=== PATIENT | female | born 1990 | race American Indian/Alaskan Native ===

== ENCOUNTER 2016-11-27 00:49 | Emergency (ER) | payer MEDICAID ==
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
[2016-11-27 05:01] VITALS: BP 146/78
== END 2016-11-27 05:02 | disposition home or self-care (01) ==
LOC: ED 00:49
DX: T21.51XA Corrosion of first degree of chest wall, initial encounter (principal); T24.512A Corrosion of first degree of left thigh, initial encounter; T24.511A Corrosion of first degree of right thigh, initial encounter; X08.8XXA Exposure to other specified smoke, fire and flames, initial encounter; Y93.9 Activity, unspecified; Y99.9 Unspecified external cause status; Y92.89 Other specified places as the place of occurrence of the external cause

== ENCOUNTER 2019-02-07 13:42 | Inpatient (IN) | payer MEDICAID ==
[2019-02-07] MEDS ORDERED: BENADRYL PO PRN (14:21)
[2019-02-07] MEDS ORDERED: TYLENOL PO PRN (14:21)
--- NOTE | 2019-02-07 14:29 | History and Physical Report ---
History of Present Illness Chief complaint: transferred from clinic for preeclampsia evaluation History of present illness: 29yo at 25 5/7wks transferred from clinic for concern for elevated blood pressures with history of preeclampsia. She has a history of preeclampsia at 24 and 30 weeks with subsequent delivery via section x 2. Her BPs in clinic were 150/100s, with no symptoms of headaches, blurry vision or RUQ pain. Her baseline 24hr urine protein is 467mg in December and 625mg one week ago. Her 1hr OGTT was 230, therefore a newly diagnosed gestational diabetic. She is comanaged with [facility] and was diagnosed with growth restriction at 20 weeks in the 2%. She is a patient of [facility] at [place]. 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) Past Surgical History: section (x 2 at 24 and 30wks) Social history: smoking (stopped when learned of ; smoking x 4 years, 4 cigs/day), other (lives with son) - Obstetrical History : 4 Number of Pregnancies: 2 Number of Living Children: 1 Medications and Allergies Allergies Allergy/AdvReac Type Severity Reaction Status Date / Time Penicillins AdvReac Severe Swelling Verified 01/29/19 15:09 Home Medications Medication Instructions Recorded Confirmed Last Taken Type Cyclobenzaprine [Flexeril] 10 mg PO TID PRN #30 tablet 06/09/13 Unknown Rx Hydrocodone Bit/Acetaminophen 1 each PO Q6HR #20 tablet 06/09/13 Unknown Rx [Lortab 5-500 Tablet] Ibuprofen [Motrin] 600 mg PO Q8H PRN #60 tablet 06/09/13 Unknown Rx Hydrocortisone 1% [Hydrocortisone 1 applicatio TP TID #1 tube 11/27/16 Unknown Rx 1% CREAM] Silver Sulfadiazine [Thermazene] 50 gm TP BID #1 cream..g. 11/27/16 Unknown Rx Active Meds: Active Medications Acetaminophen (Tylenol) 650 mg PO Q4H PRN PRN Reason: Pain MILD(1-3)/Fever >100.5/ELIAS Diphenhydramine HCl (Benadryl) 25 mg PO Q6H PRN PRN Reason: Itching Docusate Sodium (Colace) 100 mg PO Q12H PRN PRN Reason: Constipation Multivitamins/Iron/Calcium ( Vitamin) 1 each PO QDAY MAXINE - Vital Signs Vital signs: Vital Signs Pulse BP 89 139/86 02/07/19 14:01 02/07/19 14:01 Temp Pulse Resp BP Pulse Ox 83 132/81 02/07/19 14:16 02/07/19 14:16 Results All other labs normal. Assessment and Plan - Patient Problems (1) 25 weeks gestation of Current Visit: Yes Status: Acute Plan to address problem: Consider steroids after evaluation of blood glucose and IUGR Currently BPs controlled, mild elevation Obtain records from clinic for baseline BPs, labs (2) Gestational diabetes mellitus (GDM) Current Visit: Yes Status: Acute Plan to address problem: Record fasting, 2hr postprandial blood glucose (3) Chronic hypertension affecting Current Visit: Yes Status: Acute Plan to address problem: PIH labs 24hr urine protein Continue Labetolol 100mg PO BID (4) Proteinuria affecting Current Visit: Yes Status: Acute (5) Intrauterine growth restriction (IUGR) affecting care of mother Current Visit: Yes Status: Acute Plan to address problem: History of - Order estimated weight, UA dopplers Hold betamethasone until recommendation from [facility] due to association with IUGR and elevated blood glucose
[2019-02-07 16:43] LABS: Hemoglobin 11.3 gm/dl (10.1-14.3); Mean Corpuscular HGB Conc 34 % (30-34); Mean Corpuscular Volume 99 fl (79-97); Platelet Count 244 K/mm3 (140-440); Red Blood Count 3.33 M/mm3 (3.65-5.03); Red Cell Distribution Width 14.3 % (13.2-15.2)
[2019-02-07 17:01] LABS: Alanine Aminotransferase 32 units/L (7-56); Albumin 3.5 g/dL (3.9-5); BUN/Creatinine Ratio 20; Blood Urea Nitrogen 12 mg/dL (7-17); Calcium 9.3 mg/dL (8.4-10.2); Hemolysis Index 32; Uric Acid 5.5 mg/dL (3.5-7.6)
--- NOTE | 2019-02-07 17:56 | Event Note ---
Spoke with Dr. Ferreira, GRICEL Plan update? TORCH labs ordered steroids order to begin after blood glucose collection tomorrow. TSH ordered. NICU consult ordered.
--- NOTE | 2019-02-07 18:39 | Consultation ---
History of Present Illness Consult date: 02/07/19 Requesting physician: ALLY ARELLANO History of present illness: 29 y/o ROSA 05/18/19 now 25 5/7 weeks sent in from OB's office with stephanie vargas BP's sys in 180's per OB Denies ELIAS's Scotoma or RUQ Pain History of Severe Preeclampsia X 2 with prior pregnancies at 24 and 30 weeks Received IV Hydralazine and is on PO Labetalol 100 BID (on for 3 days) ------ New Diag of GDM 1 Hour GTT at 230 per OB ------ BP now 140-160/80's and 142/86 and 161/97 [facility] US also Severe IUGR 01/29/19 [facility] US EFW at 573 grams 6% with AC at 2% 02/07/19 [facility] US EFW still at 573 grams 0% and Cord Dopplers 3.4 to 4.6 Had 24 Hour Urine Prot 469 on 11/01/18 Labs H/H at 33 Plts at 244 AST/ALT at 25/32 Creat at .6 ob [id number] C/S 24 wks severe preeclampsia 15oz passed after 2 months 2006 Repeat C/S Severe preeclampsia at 30 weeks 4# also GDM Preg 3 VIP \\ 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) Past Surgical History: section (x 2 at 24 and 30wks) - Obstetrical History : 4 Medications and Allergies Allergies Allergy/AdvReac Type Severity Reaction Status Date / Time Penicillins AdvReac Severe Swelling Verified 01/29/19 15:09 Home Medications Medication Instructions Recorded Confirmed Last Taken Type Cyclobenzaprine [Flexeril] 10 mg PO TID PRN #30 tablet 06/09/13 Unknown Rx Hydrocodone Bit/Acetaminophen 1 each PO Q6HR #20 tablet 06/09/13 Unknown Rx [Lortab 5-500 Tablet] Ibuprofen [Motrin] 600 mg PO Q8H PRN #60 tablet 06/09/13 Unknown Rx Hydrocortisone 1% [Hydrocortisone 1 applicatio TP TID #1 tube 11/27/16 Unknown Rx 1% CREAM] Silver Sulfadiazine [Thermazene] 50 gm TP BID #1 cream..g. 11/27/16 Unknown Rx Active Meds: Active Medications Acetaminophen (Tylenol) 650 mg PO Q4H PRN PRN Reason: Pain MILD(1-3)/Fever >100.5/ELIAS Betamethasone Acet/Betameth SodPhos (Celestone Soluspan) 12 mg IM Q24H MAXINE Stop: 02/09/19 22:01 Diphenhydramine HCl (Benadryl) 25 mg PO Q6H PRN PRN Reason: Itching Docusate Sodium (Colace) 100 mg PO Q12H PRN PRN Reason: Constipation Labetalol HCl (Normodyne) 100 mg PO BID MAXINE Multivitamins/Iron/Calcium ( Vitamin) 1 each PO QDAY MAXINE - Vital Signs Vital signs: Vital Signs Pulse BP 89 139/86 02/07/19 14:01 02/07/19 14:01 Temp Pulse Resp BP Pulse Ox 99 F 88 18 161/97 02/07/19 14:47 02/07/19 18:03 02/07/19 14:47 02/07/19 18:03 Results Result Diagrams: 02/07/19 15:00 02/07/19 15:00 Abnormal lab results 02/07/19 02/07/19 Range/Units 15:00 15:00 WBC 11.7 H (4.5-11.0) K/mm3 RBC 3.33 L (3.65-5.03) M/mm3 MCV 99 H (79-97) fl MCH 34 H (28-32) pg Sodium 136 L (137-145) mmol/L Creatinine 0.6 L (0.7-1.2) mg/dL Lactate Dehydrogenase 273 H (91-180) units/L Total Protein 6.1 L (6.3-8.2) g/dL Albumin 3.5 L (3.9-5) g/dL All other labs normal. Assessment and Plan Impression: 1. Ramirez IUP at 25 5/7 weeks 2. Preeclampsia R/O Severe 3. H/O Preeclampsia with Past 2 Preg at 24 and 30 weeks 4. Prior C/S X 2 5. Severe IUGR with No growth over past 10 days EFW at 0% ( 02/07/19 at 573 grams - mean would be 873 grams) 6. GDM 7. Proteinuria Diag 11/01/18 at 469 Recommendations: 1. Steroids for FLM 2. Mg for neuroprophylaxis and Preeclampsia 3. All PIH Labs and repeat 24 Hour urine and spot UA 4. IV hydralazine for BP's sys > 160 or gage > 110 5. Labetalol 100 PO BID 6. 1999 ADA diet 7. Seq Leg compressors 8. Will ask US to obtain BPP if possible - Dopplers borderline elevated 9. BPP and cord dopplers twice per week 10. NICU consult 11. Accuchecks fastings and 2 Hour PP's 12. IF BS's high would start Insulin Split dose 30NPH/14Novolog in am 10Novolog at dinner and 10 NPH at bedtime 13. Delivery indicated for nonreassuing A-P testing - Reversal EDF or S/S of severe Preeclampsia - very high risk explained no growth over 10 days is very concerning. Steroids to be given and she is aware that delivery (by C/S) may be indicated 14. PIH Labs twice per week
[2019-02-07 19:19] LABS: Bacteria,Urine 2+ /HPF (Negative); Bilirubin,Urine NEG (Negative); Blood,Urine NEG (Negative); Color,Urine Amber (Yellow); Mucus,Urine 1+ /HPF; Urobilinogen,Urine < 2.0 mg/dL (<2.0)
[2019-02-07] MEDS: NORMODYNE PO SCH (22:13)
--- NOTE | 2019-02-08 05:41 | Ultrasound Report ---
PROCEDURE: US OB FOLLOW UP TECHNIQUE: Real-time limited sonographic examination was performed for evaluation of growth fo r each fetus with image documentation (1 or more fetuses). HISTORY: growth scan COMPARISONS: None . FINDINGS: MATERNAL Uterus: Within normal limits . Internal Os: closed . FETUS IUP: Single living intrauterine . Position: Breech . Amniotic fluid volume: Normal with a four-quadrant measurement of 11.4 cm Heart rate and rhythm: 129 BPM, Regular . anatomic survey: Not performed for this study . MEASUREMENTS BPD: 6 cm . HC: 21.8 cm . AC: 16.9 cm . FL: 4.4 cm . Mean Gestational Age (composite criteria): 23 weeks 5 days . Ratio biometry: Normal . Estimated Weight: 573 grams Interval growth: Appropriate . Estimated Due Date (earliest scan): 06/01/2019 . IMPRESSION: 1. Single living intrauterine gestation at approximately 23 weeks 5 days . 2. EDC by US 06/01/2019 . This document is electronically signed by Johanna Sheehan DO., Feb 08 2019 05:39:15 AM ET
--- NOTE | 2019-02-08 05:44 | Ultrasound Report ---
PROCEDURE: US OB VELOCIMETRY UMBILCAL ART TECHNIQUE: Ultrasound Doppler of the umbilical artery HISTORY: growth restriction COMPARISONS: No prior study FINDINGS: Doppler ultrasound evaluation of the umbilical artery reveals an S/D ratio average of 4.2. The distal index RI average is 2.3. The waveforms are normal. IMPRESSION: Normal evaluation of the umbilical artery. This document is electronically signed by Johanna Sheehan DO., Feb 08 2019 05:42:07 AM ET
[2019-02-08] MEDS ORDERED: LACTATED RINGERS 1,000 ML ONE (08:23)
[2019-02-08] MEDS: NORMODYNE PO SCH ×2 (10:25→21:18)
[2019-02-08] MEDS: PRENATAL VITAMIN PO SCH (10:26)
--- NOTE | 2019-02-08 14:08 | Consultation ---
History of Present Illness Consult date: 02/08/19 Requesting physician: CHRISTIN ACOSTA History of present illness: 29 y/o ROSA 05/18/19 now 25 6/7 weeks sent in from OB's office with elevated BP's sys in 180's per OB Denies ELIAS's Scotoma or RUQ Pain History of Severe Preeclampsia X 2 with prior pregnancies at 24 and 30 weeks ------ New Diag of GDM 1 Hour GTT at 230 per OB ------ BP now stable today on meds [facility] US also Severe IUGR 01/29/19 [facility] US EFW at 573 grams 6% with AC at 2% 02/07/19 [facility] US EFW still at 573 grams 0% and Cord Dopplers normal Had 24 Hour Urine Prot 469 on 11/01/18 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) Past Surgical History: section (x 2 at 24 and 30wks) - Obstetrical History : 4 Medications and Allergies Allergies Allergy/AdvReac Type Severity Reaction Status Date / Time Penicillins AdvReac Severe Swelling Verified 01/29/19 15:09 Home Medications Medication Instructions Recorded Confirmed Last Taken Type Cyclobenzaprine [Flexeril] 10 mg PO TID PRN #30 tablet 06/09/13 Unknown Rx Hydrocodone Bit/Acetaminophen 1 each PO Q6HR #20 tablet 06/09/13 Unknown Rx [Lortab 5-500 Tablet] Ibuprofen [Motrin] 600 mg PO Q8H PRN #60 tablet 06/09/13 Unknown Rx Hydrocortisone 1% [Hydrocortisone 1 applicatio TP TID #1 tube 11/27/16 Unknown Rx 1% CREAM] Silver Sulfadiazine [Thermazene] 50 gm TP BID #1 cream..g. 11/27/16 Unknown Rx Active Meds: Active Medications Acetaminophen (Tylenol) 650 mg PO Q4H PRN PRN Reason: Pain MILD(1-3)/Fever >100.5/ELIAS Last Admin: 02/08/19 08:45 Dose: 650 mg Documented by: Betamethasone Acet/Betameth SodPhos (Celestone Soluspan) 12 mg IM Q24H [facility] Stop: 02/09/19 22:01 Diphenhydramine HCl (Benadryl) 25 mg PO Q6H PRN PRN Reason: Itching Docusate Sodium (Colace) 100 mg PO Q12H PRN PRN Reason: Constipation Labetalol HCl (Normodyne) 100 mg PO BID [facility] Last Admin: 02/08/19 10:25 Dose: 100 mg Documented by: Multivitamins/Iron/Calcium ( Vitamin) 1 each PO QDAY [facility] Last Admin: 02/08/19 10:26 Dose: 1 each Documented by: Review of Systems Constitutional: no fever, no chills, no sweats Eyes: no blurred vision, no diplopia Ears, nose, mouth and throat: deferred Cardiovascular: no orthopnea, no palpitations, no rapid/irregular heart beat Respiratory: no cough, no cough with sputum, no shortness of breath Gastrointestinal: no abdominal pain Musculoskeletal: no neck stiffness - Vital Signs Vital signs: Vital Signs Pulse BP 89 139/86 02/07/19 14:01 02/07/19 14:01 Temp Pulse Resp BP Pulse Ox 98.7 F 83 18 127/74 02/08/19 08:25 02/08/19 13:22 02/08/19 08:25 02/08/19 13:22 - Physical Exam Cardiovascular: Regular rate Lungs: Positive: Normal air movement Abdomen: Positive: normal appearance, soft. Negative: distention, tenderness Uterus: Negative: tender (Not on monitor when seeing patient) Results Result Diagrams: 02/07/19 15:00 02/07/19 15:00 Abnormal lab results 02/07/19 02/07/19 02/07/19 Range/Units 15:00 15:00 21:03 WBC 11.7 H (4.5-11.0) K/mm3 RBC 3.33 L (3.65-5.03) M/mm3 MCV 99 H (79-97) fl MCH 34 H (28-32) pg Sodium 136 L (137-145) mmol/L Creatinine 0.6 L (0.7-1.2) mg/dL POC Glucose 116 H (70-105) Lactate Dehydrogenase 273 H (91-180) units/L Total Protein 6.1 L (6.3-8.2) g/dL Albumin 3.5 L (3.9-5) g/dL 02/08/19 02/08/19 Range/Units 10:40 13:51 WBC (4.5-11.0) K/mm3 RBC (3.65-5.03) M/mm3 MCV (79-97) fl MCH (28-32) pg Sodium (137-145) mmol/L Creatinine (0.7-1.2) mg/dL POC Glucose 107 H 112 H (70-105) Lactate Dehydrogenase (91-180) units/L Total Protein (6.3-8.2) g/dL Albumin (3.9-5) g/dL All other labs normal. Assessment and Plan 29 y/o ROSA 05/18/19 now 25 6/7 weeks with CHTN not controlled, IUGR, history of PreE, GDM no meds - the patient is stable now on Labetalol 100 BID - 24 hour urine is pending at this time past one was 460 - labs are stable - the patient has no sxs now - the patient should have repeat labs today - her BP have been stable since she has been admitted - new Dx of GDM with stable BS, continue BS checks - likely that the patient can be DC if all her BS and BP are stable - she will need to perform BP and BS at home - I spoke with Dr Acosta about the patient -please call myself with any further concerns [phone]
--- NOTE | 2019-02-08 14:22 | Progress Note ---
Assessment and Plan - Patient Problems (1) 25 weeks gestation of Current Visit: Yes Status: Acute (2) Chronic hypertension affecting Current Visit: Yes Status: Acute Plan to address problem: Toxemia labs ordered. Continue labetolol. Continous monitoring. (3) Intrauterine growth restriction (IUGR) affecting care of mother Current Visit: Yes Status: Acute Plan to address problem: [facility] consult done. BPP and Cord doppler tomorrow. (4) Gestational diabetes mellitus (GDM) Current Visit: Yes Status: Acute Plan to address problem: Continue fasting, 2-hr PP glucose. Subjective - Subjective Date of service: 02/08/19 Principal diagnosis: SIUP at 25 weeks and 6 days gestation with CHTN, IUGR. Interval history: Patient is a 29 year old at 25 6/7 weeks who was admitted yesterday for elevated blood pressures. Her BPs in clinic were 150/100s. She denied any headache, visual changes or RUQ pain. She reported good movement. She was started on labetolol BID. Since her admission, her BPs have been stable in the 130's-80-90's. She has a history of preeclampsia at 24 and 30 weeks with subsequent delivery via section x 2. Her 24-hr urine protein in 12/2018 was 467mg and 625mg one week ago. She is a gestational diabetic (GDMA1). She is co-managed with [facility] for CHTN and IUGR. BPP 8/8. Cord doppler was normal. Objective - Vital Signs Vital Signs: Vital Signs - 12hr 02/08/19 02/08/19 02/08/19 02:58 03:58 04:59 Temperature Pulse Rate 87 81 74 Respiratory Rate Blood Pressure 133/72 131/74 152/88 02/08/19 02/08/19 02/08/19 05:58 06:58 07:58 Temperature Pulse Rate 77 73 79 Respiratory Rate Blood Pressure 142/84 135/75 131/75 02/08/19 02/08/19 02/08/19 08:25 08:58 09:58 Temperature 98.7 F Pulse Rate 80 75 Respiratory 18 Rate Blood Pressure 139/86 140/84 02/08/19 02/08/19 02/08/19 10:25 10:58 11:58 Temperature Pulse Rate 75 85 90 Respiratory Rate Blood Pressure 143/97 144/90 141/82 02/08/19 02/08/19 12:58 13:22 Temperature Pulse Rate 83 83 Respiratory Rate Blood Pressure 135/82 127/74 - Exam Cardiovascular: Normal S1, Normal S2 Lungs: Clear to auscultation Vulva: both: normal FHR: category 1 Uterine Contraction Monitor Mode: External Uterine Contraction Pattern: Absent Deep Tendon Reflex Grade: Normal +2 - Labs Labs: Abnormal Labs 02/07/19 02/07/19 02/07/19 15:00 15:00 21:03 WBC 11.7 H RBC 3.33 L MCV 99 H MCH 34 H Sodium 136 L Creatinine 0.6 L POC Glucose 116 H Lactate Dehydrogenase 273 H Total Protein 6.1 L Albumin 3.5 L 02/08/19 02/08/19 10:40 13:51 WBC RBC MCV MCH Sodium Creatinine POC Glucose 107 H 112 H Lactate Dehydrogenase Total Protein Albumin Laboratory Results - last 24 hr 02/07/19 02/07/19 02/07/19 15:00 15:00 15:00 WBC 11.7 H RBC 3.33 L Hgb 11.3 Hct 33.0 MCV 99 H MCH 34 H MCHC 34 RDW 14.3 Plt Count 244 Sodium 136 L Potassium 4.5 Chloride 101.0 Carbon Dioxide 22 Anion Gap 18 BUN 12 Creatinine 0.6 L Estimated GFR > 60 BUN/Creatinine Ratio 20 Glucose 73 POC Glucose Fasting Glucose Hemoglobin A1c 5.5 Uric Acid 5.5 Calcium 9.3 Total Bilirubin 0.20 AST 25 ALT 32 Alkaline Phosphatase 101 Lactate Dehydrogenase 273 H Total Protein 6.1 L Albumin 3.5 L Albumin/Globulin Ratio 1.3 TSH Urine Color Urine Turbidity Urine pH Ur Specific [place] Urine Protein Urine Glucose (UA) Urine Ketones Urine Blood Urine Nitrite Urine Bilirubin Urine Urobilinogen Ur Leukocyte Esterase Urine WBC (Auto) Urine RBC (Auto) U Epithel Cells (Auto) Urine Bacteria (Auto) Urine Mucus RPR 02/07/19 02/07/19 02/07/19 17:00 18:35 18:35 WBC RBC Hgb Hct MCV MCH MCHC RDW Plt Count Sodium Potassium Chloride Carbon Dioxide Anion Gap BUN Creatinine Estimated GFR BUN/Creatinine Ratio Glucose POC Glucose Fasting Glucose Hemoglobin A1c Uric Acid Calcium Total Bilirubin AST ALT Alkaline Phosphatase Lactate Dehydrogenase Total Protein Albumin Albumin/Globulin Ratio TSH 1.490 Urine Color [place] Urine Turbidity Turbid Urine pH 5.0 Ur Specific [place] 1.029 Urine Protein 30 mg/dl Urine Glucose (UA) Neg Urine Ketones Tr Urine Blood Neg Urine Nitrite Neg Urine Bilirubin Neg Urine Urobilinogen < 2.0 Ur Leukocyte Esterase Neg Urine WBC (Auto) 2.0 Urine RBC (Auto) 5.0 U Epithel Cells (Auto) 1.0 Urine Bacteria (Auto) 2+ Urine Mucus 1+ RPR Nonreactive 02/07/19 02/08/19 02/08/19 21:03 05:07 05:42 WBC RBC Hgb Hct MCV MCH MCHC RDW Plt Count Sodium Potassium Chloride Carbon Dioxide Anion Gap BUN Creatinine Estimated GFR BUN/Creatinine Ratio Glucose POC Glucose 116 H 80 Fasting Glucose 91 Hemoglobin A1c Uric Acid Calcium Total Bilirubin AST ALT Alkaline Phosphatase Lactate Dehydrogenase Total Protein Albumin Albumin/Globulin Ratio TSH Urine Color Urine Turbidity Urine pH Ur Specific [place] Urine Protein Urine Glucose (UA) Urine Ketones Urine Blood Urine Nitrite Urine Bilirubin Urine Urobilinogen Ur Leukocyte Esterase Urine WBC (Auto) Urine RBC (Auto) U Epithel Cells (Auto) Urine Bacteria (Auto) Urine Mucus RPR 02/08/19 02/08/19 10:40 13:51 WBC RBC Hgb Hct MCV MCH MCHC RDW Plt Count Sodium Potassium Chloride Carbon Dioxide Anion Gap BUN Creatinine Estimated GFR BUN/Creatinine Ratio Glucose POC Glucose 107 H 112 H Fasting Glucose Hemoglobin A1c Uric Acid Calcium Total Bilirubin AST ALT Alkaline Phosphatase Lactate Dehydrogenase Total Protein Albumin Albumin/Globulin Ratio TSH Urine Color Urine Turbidity Urine pH Ur Specific [place] Urine Protein Urine Glucose (UA) Urine Ketones Urine Blood Urine Nitrite Urine Bilirubin Urine Urobilinogen Ur Leukocyte Esterase Urine WBC (Auto) Urine RBC (Auto) U Epithel Cells (Auto) Urine Bacteria (Auto) Urine Mucus RPR - Results US- obstetric: report reviewed
[2019-02-08 15:10] LABS: Hematocrit 34.3 % (30.3-42.9); Hemoglobin 11.7 gm/dl (10.1-14.3); Mean Corpuscular HGB Conc 34 % (30-34); Mean Corpuscular Volume 102 fl (79-97); Platelet Count 234 K/mm3 (140-440); Red Blood Count 3.38 M/mm3 (3.65-5.03); Red Cell Distribution Width 14.6 % (13.2-15.2)
[2019-02-08 15:52] LABS: Alanine Aminotransferase 34 units/L (7-56); Uric Acid 5.6 mg/dL (3.5-7.6)
[2019-02-08] MEDS: LACTATED RINGERS 1,000 ML IV SCH (19:35)
[2019-02-08] MEDS: CELESTONE SOLUSPAN IM SCH (21:18)
[2019-02-09] MEDS: LACTATED RINGERS 1,000 ML IV SCH ×2 (09:36→21:11)
[2019-02-09] MEDS: NORMODYNE PO SCH ×2 (10:06→22:55)
--- NOTE | 2019-02-09 10:24 | Progress Note ---
Assessment and Plan - Patient Problems (1) 26 weeks gestation of Current Visit: Yes Status: Acute (2) Chronic hypertension affecting Current Visit: Yes Status: Acute Plan to address problem: Toxemia labs were normal. Continue labetolol and BP monitoring. monitoring. [facility] consult done. (3) IUGR (intrauterine growth restriction) Current Visit: Yes Status: Acute Plan to address problem: Sonogram (02/09)showed EFW: 604 gms, BPP 8/8, JESENIA 14.4, cord doppler normal. [facility] consult done. Recommended continue inpatient management. Repeat BPP and cord doppler in 2-3 days. (4) Gestational diabetes Current Visit: Yes Status: Acute Plan to address problem: FS fasting and 2-hr PP. ADA diet. (5) Previous delivery affecting Current Visit: Yes Status: Acute (6) Obesity Current Visit: Yes Status: Acute Subjective - Subjective Date of service: 02/09/19 Principal diagnosis: SIUP at 26 weeks with elevated BP and IUGR. Interval history: Patient is a 29 year old at 26 weeks gestation who was admitted 2 days ago for elevated blood pressure. Her BPs in clinic were 150/100s. She denied any headache, visual changes or RUQ pain. She reported good movement. She was started on labetolol BID. Since her admission, her BPs have been stable in the 100-160/60-90's. She has a history of preeclampsia at 24 and 30 weeks with subsequent delivery via section x 2. Her 24-hr urine protein in 12/2018 was 467mg and 625mg one week ago. She is a gestational diabetic (GDMA1). She is co-managed with [facility] for CHTN and IUGR. BPP 8/8. Cord doppler was normal 02/07. Objective - Vital Signs Vital Signs: Vital Signs - 12hr 02/08/19 02/08/19 02/09/19 22:22 23:22 00:23 Temperature Pulse Rate 85 86 83 Blood Pressure 134/77 140/79 134/60 02/09/19 02/09/19 02/09/19 01:23 02:24 03:22 Temperature Pulse Rate 80 93 H 83 Blood Pressure 115/55 105/62 134/63 02/09/19 02/09/19 02/09/19 07:40 07:43 10:05 Temperature 98.6 F Pulse Rate 86 90 Blood Pressure 165/90 134/78 02/09/19 10:06 Temperature Pulse Rate Blood Pressure 134/78 - Exam Cardiovascular: Normal S1, Normal S2 Lungs: Clear to auscultation Vulva: both: normal FHR: category 1 Uterine Contraction Monitor Mode: External Uterine Contraction Pattern: Absent Deep Tendon Reflex Grade: Normal +2 - Labs Labs: Abnormal Labs 02/07/19 02/07/19 02/07/19 15:00 15:00 21:03 WBC 11.7 H RBC 3.33 L MCV 99 H MCH 34 H Sodium 136 L Creatinine 0.6 L POC Glucose 116 H Lactate Dehydrogenase 273 H Total Protein 6.1 L Albumin 3.5 L Ur Total Protein 24 Hr Urine Total Protein 02/08/19 02/08/19 02/08/19 10:40 13:51 14:46 WBC 11.4 H RBC 3.38 L MCV 102 H MCH 35 H Sodium Creatinine POC Glucose 107 H 112 H Lactate Dehydrogenase Total Protein Albumin Ur Total Protein 24 Hr Urine Total Protein 02/08/19 02/08/19 02/08/19 14:46 19:23 20:01 WBC RBC MCV MCH Sodium Creatinine POC Glucose 112 H Lactate Dehydrogenase 218 H Total Protein Albumin Ur Total Protein 24 Hr 286.00 H Urine Total Protein 13 H 02/09/19 06:16 WBC RBC MCV MCH Sodium Creatinine POC Glucose 147 H Lactate Dehydrogenase Total Protein Albumin Ur Total Protein 24 Hr Urine Total Protein Laboratory Results - last 24 hr 02/07/19 02/08/19 02/08/19 18:35 10:40 13:51 WBC RBC Hgb Hct MCV MCH MCHC RDW Plt Count Creatinine Estimated GFR POC Glucose 107 H 112 H Uric Acid AST ALT Lactate Dehydrogenase Urine Total Volume Ur Total Protein 24 Hr Urine Total Protein RPR Nonreactive 02/08/19 02/08/19 02/08/19 14:46 14:46 19:23 WBC 11.4 H RBC 3.38 L Hgb 11.7 Hct 34.3 MCV 102 H MCH 35 H MCHC 34 RDW 14.6 Plt Count 234 Creatinine 0.7 Estimated GFR > 60 POC Glucose Uric Acid 5.6 AST 24 ALT 34 Lactate Dehydrogenase 218 H Urine Total Volume 2200 Ur Total Protein 24 Hr 286.00 H Urine Total Protein 13 H RPR 02/08/19 02/09/19 20:01 06:16 WBC RBC Hgb Hct MCV MCH MCHC RDW Plt Count Creatinine Estimated GFR POC Glucose 112 H 147 H Uric Acid AST ALT Lactate Dehydrogenase Urine Total Volume Ur Total Protein 24 Hr Urine Total Protein RPR - Results US- obstetric: report reviewed
--- NOTE | 2019-02-09 11:10 | Ultrasound Report ---
PROCEDURE: US OB FOLLOW UP TECHNIQUE: Real-time transabdominal sonography of the uterus, placenta, amniotic fluid, adnexa, and fetus was performed with image documentation. Measurements were obtained to determine age/size. M-mode Doppler was used to document heartbeat. ADDITIONAL GESTATION: None HISTORY: Growth and JESENIA COMPARISONS: Obstetric ultrasound performed on 02/07/2019. FINDINGS: MATERNAL: Uterus and cervix: The cervix is closed measures 6.1 cm in length. Adnexa and ovaries: Not visualized. IUP: Single live intrauterine gestation. Position: Cephalic Placental position: Anterior, without previa . Amniotic fluid volume Normal. JESENIA is 14.4 cm. Cardiac activity: Regular rhythm at 143 bpm. BIOMETRY: Biparietal diameter: 5.9 cm, corresponding to a gestational age of 24 weeks, 0 days. Head circumference: 21.5 cm, corresponding to a gestational age of 23 weeks, 4 days. abdominal circumference: 18.62 cm, corresponding to a gestational age of 23 weeks, 3 days. Femur length: 4.19 cm, corresponding to a gestational age of 23 weeks, 4 days. Ratio biometry: Normal . Estimated Weight: 604 grams. Mean Gestational Age (composite criteria) based on today's measurements: 23 weeks, 5 days. Estimated Due Date: 06/03/2019. IMPRESSION: Single live intrauterine gestation at 23 weeks, 5 days. Estimated due date: 06/03/2019. No anatomic abnormality. Normal amniotic fluid index of 14.4 cm. This document is electronically signed by Prisca Camara MD., Feb 09 2019 11:09:05 AM ET
--- NOTE | 2019-02-09 11:11 | Ultrasound Report ---
PROCEDURE: US OB BPP WO NON-STRESS TECHNIQUE: Sonographic evaluation for breathing, movement, tone, and amniotic flui d volume was performed. HISTORY: well being COMPARISONS: None . FINDINGS: FETUS Amniotic fluid volume Normal-score 2. At least one vertical pocket >2 cm or more in vertical axis . breathing: Normal-score 2 . movement: Normal-score 2 . tone: Normal-score 2 . Score: 8 of 8 . IMPRESSION: Normal biophysical profile . This document is electronically signed by Prisca Camara MD., Feb 09 2019 11:09:49 AM ET
--- NOTE | 2019-02-09 11:13 | Ultrasound Report ---
PROCEDURE: US OB VELOCIMETRY UMBILCAL ART TECHNIQUE: Duplex Doppler ultrasound of the umbilical artery was performed HISTORY: well being COMPARISONS: Ultrasound of the umbilical artery performed on 02/08/2018 FINDINGS: There is a normal waveform of the umbilical artery with a systolic to diastolic ratio average of 3.48 and a normal resistive indices average of 0.71. heart rate is 143 bpm. IMPRESSION: Normal umbilical artery ultrasound. This document is electronically signed by Prisca Camara MD., Feb 09 2019 11:11:39 AM ET
--- NOTE | 2019-02-09 15:26 | Ultrasound Report ---
PROCEDURE: US OB VELOCIMETRY UMBILCAL ART TECHNIQUE: Duplex Doppler ultrasound of the umbilical artery was performed HISTORY: IUGR COMPARISONS: Ultrasound of the umbilical artery performed on 02/07/2019 FINDINGS: There is a normal waveform of the umbilical artery with a systolic to diastolic ratio average of 4.05 . Normal resistive index range of 0.75. heart rate is 142 bpm. IMPRESSION: Normal ultrasound of the umbilical artery. This document is electronically signed by Prisca Camara MD., Feb 09 2019 03:24:22 PM ET
[2019-02-09] MEDS: CELESTONE SOLUSPAN IM SCH (22:59)
[2019-02-10 09:29] LABS: Hematocrit 33.8 % (30.3-42.9); Hemoglobin 11.4 gm/dl (10.1-14.3); Mean Corpuscular HGB Conc 34 % (30-34); Mean Corpuscular Volume 101 fl (79-97); Red Blood Count 3.36 M/mm3 (3.65-5.03); Red Cell Distribution Width 14.6 % (13.2-15.2)
[2019-02-10 09:30] LABS: Platelet Count 250 K/mm3 (140-440)
[2019-02-10] MEDS: NORVASC PO SCH (09:46)
[2019-02-10] MEDS: NORMODYNE PO SCH ×2 (09:47→21:31)
[2019-02-10] MEDS: PRENATAL VITAMIN PO SCH (09:47)
[2019-02-10 09:49] LABS: Alanine Aminotransferase 31 units/L (7-56); Uric Acid 4.7 mg/dL (3.5-7.6)
--- NOTE | 2019-02-10 11:56 | Progress Note ---
Assessment and Plan - Patient Problems (1) 26 weeks gestation of Onset Date: 02/10/19 Current Visit: Yes Status: Acute Plan to address problem: A: IUP @ 26 1/7 weeks Chronic hypertension - uncontrolled P: Continue on Labetalol 300 BID and amlodipine 5mg QD - her BP have been increased and required continued med adjustment - labs are stable Continue present management (2) Chronic hypertension affecting Onset Date: 02/10/19 Current Visit: Yes Status: Acute Subjective - Subjective Date of service: 02/10/19 Principal diagnosis: SIUP at 26 weeks with elevated BP and IUGR. Interval history: Patient is a 29 year old at 26 weeks gestation who was admitted 3 days ago for elevated blood pressure. Her BPs in clinic were 150/100s. She denied any headache, visual changes or RUQ pain. She reported good movement. She was started on labetolol BID. Since her admission, her BPs have been stable in the 100-160/60-90's. She has a history of preeclampsia at 24 and 30 weeks with subsequent delivery via section x 2. Her 24-hr urine protein in 12/2018 was 467mg and 625mg one week ago. She is a gestational diabetic (GDMA1). She is co-managed with [facility] for CHTN and IUGR. BPP 8/. Cord doppler was normal on 02/07/19. Today she denies headaches or blurred vision. Patient reports: movement normal, no new complaints, no loss of fluid, no vaginal bleeding, no contractions Objective - Vital Signs Vital Signs: Vital Signs - 12hr 02/10/19 02/10/19 02/10/19 00:36 01:35 02:35 Pulse Rate 96 H 89 111 H Blood Pressure 134/79 135/70 136/82 02/10/19 02/10/19 02/10/19 03:35 04:35 05:35 Pulse Rate 94 H 93 H 83 Blood Pressure 146/70 137/76 145/78 02/10/19 02/10/19 02/10/19 06:35 07:35 07:52 Pulse Rate 85 79 77 Blood Pressure 132/71 169/94 152/80 02/10/19 02/10/19 02/10/19 08:36 09:35 10:35 Pulse Rate 83 96 H 95 H Blood Pressure 148/76 138/66 141/72 05/27/19 11:35 Pulse Rate 100 H Blood Pressure 138/66 - Exam Abdomen: Present: normal appearance FHR: category 1 Uterine Contraction Monitor Mode: External Uterine Contraction Pattern: Absent - Labs Labs: Abnormal Labs 02/07/19 02/07/19 02/07/19 15:00 15:00 21:03 WBC 11.7 H RBC 3.33 L MCV 99 H MCH 34 H Sodium 136 L Creatinine 0.6 L POC Glucose 116 H Lactate Dehydrogenase 273 H Total Protein 6.1 L Albumin 3.5 L Ur Total Protein 24 Hr Urine Total Protein 02/08/19 02/08/19 02/08/19 10:40 13:51 14:46 WBC 11.4 H RBC 3.38 L MCV 102 H MCH 35 H Sodium Creatinine POC Glucose 107 H 112 H Lactate Dehydrogenase Total Protein Albumin Ur Total Protein 24 Hr Urine Total Protein 02/08/19 02/08/19 02/08/19 14:46 19:23 20:01 WBC RBC MCV MCH Sodium Creatinine POC Glucose 112 H Lactate Dehydrogenase 218 H Total Protein Albumin Ur Total Protein 24 Hr 286.00 H Urine Total Protein 13 H 02/09/19 02/09/19 02/09/19 06:16 10:10 15:49 WBC RBC MCV MCH Sodium Creatinine POC Glucose 147 H 155 H 119 H Lactate Dehydrogenase Total Protein Albumin Ur Total Protein 24 Hr Urine Total Protein 02/10/19 02/10/19 08:42 08:42 WBC 21.6 H RBC 3.36 L MCV 101 H MCH 34 H Sodium Creatinine 0.6 L POC Glucose Lactate Dehydrogenase 229 H Total Protein Albumin Ur Total Protein 24 Hr Urine Total Protein Laboratory Results - last 24 hr 02/09/19 02/09/19 02/09/19 10:10 15:49 20:22 WBC RBC Hgb Hct MCV MCH MCHC RDW Plt Count Creatinine Estimated GFR POC Glucose 155 H 119 H 93 Uric Acid AST ALT Lactate Dehydrogenase 02/10/19 02/10/19 08:42 08:42 WBC 21.6 H RBC 3.36 L Hgb 11.4 Hct 33.8 MCV 101 H MCH 34 H MCHC 34 RDW 14.6 Plt Count 250 Creatinine 0.6 L Estimated GFR > 60 POC Glucose Uric Acid 4.7 AST 17 ALT 31 Lactate Dehydrogenase 229 H
--- NOTE | 2019-02-10 13:14 | Progress Note ---
Assessment and Plan 29 y/o ROSA 05/18/19 now 26 1/7 weeks with CHTN not controlled, IUGR, history of PreE, GDM no meds - the patient is stable now on Labetalol 300 BID and amlodipine 5 - her BP have been increased and required continued med adjustment - labs are stable - the patient has no sxs now - the patient should have repeat labs q 2x weekly or with sxs - new Dx of GDM with stable BS, continue BS checks - likely that the patient can be DC if all her BS and BP are stable - she will need to perform BP and BS at home -please call myself with any further concerns [phone] - at this time the patient should stay in house Subjective - Subjective Date of service: 02/10/19 Principal diagnosis: SIUP at 26 weeks with elevated BP and IUGR. Patient reports: no new complaints, no loss of fluid, no vaginal bleeding Objective - Vital Signs Vital Signs: Vital Signs - 12hr 02/10/19 02/10/19 02/10/19 01:35 02:35 03:35 Pulse Rate 89 111 H 94 H Blood Pressure 135/70 136/82 146/70 02/10/19 02/10/19 02/10/19 04:35 05:35 06:35 Pulse Rate 93 H 83 85 Blood Pressure 137/76 145/78 132/71 02/10/19 02/10/19 02/10/19 07:35 07:52 08:36 Pulse Rate 79 77 83 Blood Pressure 169/94 152/80 148/76 02/10/19 02/10/19 02/10/19 09:35 10:35 11:35 Pulse Rate 96 H 95 H 100 H Blood Pressure 138/66 141/72 138/66 02/10/19 12:35 Pulse Rate 96 H Blood Pressure 135/82 - Exam Cardiovascular: Regular rate Abdomen: Present: soft. Absent: distention, tenderness, guarding Uterus: Absent: tenderness FHR: category 1 - Labs Labs: Abnormal Labs 02/07/19 02/07/19 02/07/19 15:00 15:00 21:03 WBC 11.7 H RBC 3.33 L MCV 99 H MCH 34 H Sodium 136 L Creatinine 0.6 L POC Glucose 116 H Lactate Dehydrogenase 273 H Total Protein 6.1 L Albumin 3.5 L Ur Total Protein 24 Hr Urine Total Protein 02/08/19 02/08/19 02/08/19 10:40 13:51 14:46 WBC 11.4 H RBC 3.38 L MCV 102 H MCH 35 H Sodium Creatinine POC Glucose 107 H 112 H Lactate Dehydrogenase Total Protein Albumin Ur Total Protein 24 Hr Urine Total Protein 02/08/19 02/08/19 02/08/19 14:46 19:23 20:01 WBC RBC MCV MCH Sodium Creatinine POC Glucose 112 H Lactate Dehydrogenase 218 H Total Protein Albumin Ur Total Protein 24 Hr 286.00 H Urine Total Protein 13 H 02/09/19 02/09/19 02/09/19 06:16 10:10 15:49 WBC RBC MCV MCH Sodium Creatinine POC Glucose 147 H 155 H 119 H Lactate Dehydrogenase Total Protein Albumin Ur Total Protein 24 Hr Urine Total Protein 02/10/19 02/10/19 08:42 08:42 WBC 21.6 H RBC 3.36 L MCV 101 H MCH 34 H Sodium Creatinine 0.6 L POC Glucose Lactate Dehydrogenase 229 H Total Protein Albumin Ur Total Protein 24 Hr Urine Total Protein Laboratory Results - last 24 hr 02/09/19 02/09/19 02/10/19 15:49 20:22 08:42 WBC 21.6 H RBC 3.36 L Hgb 11.4 Hct 33.8 MCV 101 H MCH 34 H MCHC 34 RDW 14.6 Plt Count 250 Creatinine Estimated GFR POC Glucose 119 H 93 Uric Acid AST ALT Lactate Dehydrogenase 02/10/19 08:42 WBC RBC Hgb Hct MCV MCH MCHC RDW Plt Count Creatinine 0.6 L Estimated GFR > 60 POC Glucose Uric Acid 4.7 AST 17 ALT 31 Lactate Dehydrogenase 229 H
[2019-02-10] MEDS: LACTATED RINGERS 1,000 ML IV SCH (16:11)
[2019-02-11] MEDS: ALUM-MAG HYDROX-SIMETH 200-200-20MG/5ML PO PRN (00:50)
[2019-02-11] MEDS ORDERED: ALUM-MAG HYDROX-SIMETH 200-200-20MG/5ML ONE (00:50)
[2019-02-11] MEDS: LACTATED RINGERS 1,000 ML IV SCH (00:51)
[2019-02-11] MEDS: PRENATAL VITAMIN PO SCH (10:07)
[2019-02-11] MEDS: NORMODYNE PO SCH ×2 (10:07→21:43)
[2019-02-11] MEDS: NORVASC PO SCH (10:09)
--- NOTE | 2019-02-11 14:01 | Consultation ---
History of Present Illness Consult date: 02/11/19 Requesting physician: ALLY ARELLANO Reason for consult: gestational hypertension History of present illness: Indication for Admission: IUP at 26 weeks 2 day gestation. Chronic hypertension; rule out superimposed preeclampsia. Gestational diabetes no current medications. Morbid obesity. Improved blood pressure Improved blood sugar values Intrauterine growth restriction history of preeclampsia. Maintain current Labetalol CURRENT PRESENTATION: Thank you for your recent consultation regarding the above named patient. As you are aware, this is a 29 year old para 0211 at 26 weeks 2 day (based on an RSOA of 05/18/19) who is currently admitted due to chronic hypertension with possible superimposed preeclampsia she was also noted to have elevated blood sugar values at present. At present she is without complaints. She denies vaginal bleeding, fluid leakage or abdominal pain. She specifically denies headache, dizziness or blurred vision. CURRENT MEDICATION: See notes in chart. Labetalol at 300 mg BID At present she DENIES to ongoing headache. PAST OBSTETRICAL HISTORY: See notes in patients chart. PREVIOUS MEDICAL HISTORY: . See notes in chart. PHYSICAL EXAM: o Recent BPs 138/82, 138/82 o No periorbital edema o Abdomen: Soft, obese, non-distended, fundal height c/w EGA o General: Patient admits to good movement. [facility] See previous note in chart. FHR Tracing: Category 1 Available Admission Labs: See report in chart. No evidence of HELLP syndrome 24 hour urine: 5641 mg in 24 hours. 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) Past Surgical History: section (x 2 at 24 and 30wks) - Obstetrical History : 4 Medications and Allergies Allergies Allergy/AdvReac Type Severity Reaction Status Date / Time Penicillins AdvReac Severe Swelling Verified 01/29/19 15:09 Home Medications Medication Instructions Recorded Confirmed Last Taken Type Aspirin [Aspirin BABY CHEW TAB] 81 mg PO QDAY 02/10/19 02/10/19 02/06/19 History Labetalol [Labetalol 100mg TAB] 100 mg PO BID 02/10/19 02/10/19 02/07/19 History Vit-Fe Fumar-FA [ 1 tab PO QDAY 02/10/19 02/10/19 02/07/19 History Vitamin] Active Meds: Active Medications Acetaminophen (Tylenol) 650 mg PO Q4H PRN PRN Reason: Pain MILD(1-3)/Fever >100.5/ELIAS Last Admin: 02/08/19 08:45 Dose: 650 mg Documented by: Al Hydrox/Mg Hydrox/Simethicone (Alum-Mag Hydrox-Simeth [id number]/5ml) 30 ml PO Q4H PRN PRN Reason: Indigestion Last Admin: 02/11/19 00:50 Dose: 30 ml Documented by: Amlodipine Besylate (Norvasc) 5 mg PO QDAY [facility] Last Admin: 02/11/19 10:09 Dose: 5 mg Documented by: Diphenhydramine HCl (Benadryl) 25 mg PO Q6H PRN PRN Reason: Itching Docusate Sodium (Colace) 100 mg PO Q12H PRN PRN Reason: Constipation Lactated Ringer's (Lactated Ringers) 1,000 mls @ 125 mls/hr IV DIRECT [facility] Last Admin: 02/11/19 00:51 Dose: 125 mls/hr Documented by: Labetalol HCl (Normodyne) 300 mg PO BID [facility] Last Admin: 02/11/19 10:07 Dose: 300 mg Documented by: Multivitamins/Iron/Calcium ( Vitamin) 1 each PO QDAY [facility] Last Admin: 02/11/19 10:07 Dose: 1 each Documented by: - Vital Signs Vital signs: Vital Signs Pulse BP 89 139/86 02/07/19 14:01 02/07/19 14:01 Temp Pulse Resp BP Pulse Ox 98 F 82 18 154/87 94 02/11/19 13:00 02/11/19 13:01 02/11/19 13:00 02/11/19 13:01 02/11/19 03:28 Results Result Diagrams: 02/10/19 08:42 02/10/19 08:42 Abnormal lab results 02/10/19 02/11/19 Range/Units 20:15 06:35 POC Glucose 108 H 110 H (70-105) All other labs normal. Assessment and Plan ASSESSMENT IUP at 26 weeks 2 day gestation. Chronic hypertension; rule out superimposed preeclampsia. Gestational diabetes no current medications. Morbid obesity. Improved blood pressure Improved blood sugar values Intrauterine growth restriction history of preeclampsia. Maintain current Labetalol RECOMMENDATIONS 1. No changes or insulin coverage at this time. 2. Continue Labetalol as written. 3. Continue to monitor her course BPP Twice per week 4. Delivery for signs or symptoms of Severe Preeclampsia or compromise 5. Patient is NOT a candidate for discharge at this time based on previous presentation and elevated proteinuria. 6. Agree with admission for serial BP, urinalysis, PIH labs and observation. Kindly contact [facility] if there is any question as to whether this patient is a candidate for delivery. At 26+ weeks gestation; it would appear that there is some benefit to an expectant management protocol to prolong gestation in order to improve outcome without increasing maternal morbidity. In a patient with MILD preeclampsia we recommend DELIVERY at 37 weeks. In a patient with SEVERE preeclampsia we recommend DELIVERY either AT DIAGNOSIS or at 34 weeks gestation. Reference: REFERENCE: Medically indicated late- and early-term deliveries. Committee Opinion No. 560. [employer]. Obstet Gynecol 2013;121:16417. The indications for discontinuation of expectant management and DELIVERY in this patient would include ANY of the following: heart rate abnormalities, (ie, bradycardia , repetitive late or variable decelerations) Significant new onset proteinuria (see above) Thrombocytopenia Hemolysis, Elevation in liver function tests Blood pressure that is very labile or poorly controlled with reasonable doses of intravenous labetalol Symptoms of severe pre-eclampsia epigastric discomfort, headache, dizziness, blurred vision, RUQ pain, seizure. Standard obstetrical indications 7. We will follow this patient. Thank you for allowing us to participate in the care of this patient. We look forward to the opportunity to assist in her continued management. If you have any questions, we may be reached [phone]. Jono Alfred M.D.
--- NOTE | 2019-02-11 17:02 | Progress Note ---
Assessment and Plan - Patient Problems (1) Chronic hypertension affecting Onset Date: 02/10/19 Current Visit: Yes Status: Acute Plan to address problem: New diagnosis : Preeclampsia based on elevated proteinuria and blood pressures Continue current PO regimen with PRN Hydralazine Order US, UA doppler, EFW PIH labs - normal (2) Gestational diabetes Current Visit: Yes Status: Acute Plan to address problem: New diagnosis. Collect fasting, 2hr postprandial. Evaluate for need for meds. Subjective - Subjective Principal diagnosis: SIUP at 26 weeks with elevated BP and IUGR. Interval history: 29yo at 26 2/7wks being managed for CHTN S/I preeclampsia in second trimester and gestational diabetes. Preeclampsia - urine protein ranges 250-600s. BP controlled on Norvasc 5mg PO daily and Labetolol 300mg PO BID. GDM - fasting elevations. Patient states she is waking up drinking juice and eating chips in the middle of the night. Eating eggs, sausage and pancakes this morning. Patient reports: movement normal, no new complaints, no loss of fluid, no vaginal bleeding, no contractions Objective - Vital Signs Vital Signs: Vital Signs - 12hr 02/11/19 02/11/19 02/11/19 08:38 08:42 10:06 Temperature 98.4 F Pulse Rate 78 76 Respiratory 18 Rate Blood Pressure 142/81 138/82 02/11/19 02/11/19 02/11/19 10:07 10:09 13:00 Temperature 98 F Pulse Rate 76 76 Respiratory 18 Rate Blood Pressure 138/82 138/82 02/11/19 02/11/19 13:01 16:07 Temperature Pulse Rate 82 80 Respiratory Rate Blood Pressure 154/87 144/88 - Labs Labs: Abnormal Labs 02/07/19 02/07/19 02/07/19 15:00 15:00 21:03 WBC 11.7 H RBC 3.33 L MCV 99 H MCH 34 H Sodium 136 L Creatinine 0.6 L POC Glucose 116 H Lactate Dehydrogenase 273 H Total Protein 6.1 L Albumin 3.5 L Ur Total Protein 24 Hr Urine Total Protein 02/08/19 02/08/19 02/08/19 10:40 13:51 14:46 WBC 11.4 H RBC 3.38 L MCV 102 H MCH 35 H Sodium Creatinine POC Glucose 107 H 112 H Lactate Dehydrogenase Total Protein Albumin Ur Total Protein 24 Hr Urine Total Protein 02/08/19 02/08/19 02/08/19 14:46 19:23 20:01 WBC RBC MCV MCH Sodium Creatinine POC Glucose 112 H Lactate Dehydrogenase 218 H Total Protein Albumin Ur Total Protein 24 Hr 286.00 H Urine Total Protein 13 H 02/09/19 02/09/19 02/09/19 06:16 10:10 15:49 WBC RBC MCV MCH Sodium Creatinine POC Glucose 147 H 155 H 119 H Lactate Dehydrogenase Total Protein Albumin Ur Total Protein 24 Hr Urine Total Protein 02/10/19 02/10/19 02/10/19 08:15 08:42 08:42 WBC 21.6 H RBC 3.36 L MCV 101 H MCH 34 H Sodium Creatinine 0.6 L POC Glucose 156 H Lactate Dehydrogenase 229 H Total Protein Albumin Ur Total Protein 24 Hr Urine Total Protein 02/10/19 02/10/19 02/11/19 12:22 20:15 06:35 WBC RBC MCV MCH Sodium Creatinine POC Glucose 124 H 108 H 110 H Lactate Dehydrogenase Total Protein Albumin Ur Total Protein 24 Hr Urine Total Protein Laboratory Results - last 24 hr 02/10/19 02/10/19 02/11/19 16:47 20:15 06:35 POC Glucose 95 108 H 110 H 02/11/19 02/11/19 13:03 15:45 POC Glucose 81 71
[2019-02-12] LABS: Cardiolipin Ab IgA <11 APL (<=11); Cardiolipin Ab IgG <14 GPL (<=14); Cardiolipin Ab IgM <12 MPL (<=12)
[2019-02-12] MEDS: LACTATED RINGERS 1,000 ML IV SCH ×2 (04:57→20:50)
[2019-02-12] MEDS: PRENATAL VITAMIN PO SCH (10:38)
[2019-02-12] MEDS: NORMODYNE PO SCH ×2 (10:39→21:05)
[2019-02-12] MEDS: NORVASC PO SCH (10:40)
--- NOTE | 2019-02-12 12:22 | Progress Note ---
Assessment and Plan - Patient Problems (1) 26 weeks gestation of Onset Date: 02/10/19 Current Visit: Yes Status: Acute (2) Chronic hypertension affecting Onset Date: 02/10/19 Current Visit: Yes Status: Acute Plan to address problem: Toxemia labs were normal on admission. Repeat labs today as BP remains elevated. Continue labetolol and BP monitoring. monitoring. [facility] consult done. (3) IUGR (intrauterine growth restriction) Current Visit: Yes Status: Acute Plan to address problem: Sonogram (02/09)showed EFW: 604 gms, BPP 8/8, JESENIA 14.4, cord doppler normal. [facility] consult done. Recommended continue inpatient management. Repeat BPP and cord doppler today. Celestone completed for [facility]. (4) Gestational diabetes Current Visit: Yes Status: Acute Plan to address problem: FS fasting and 2-hr PP. ADA diet. (5) Previous delivery affecting Current Visit: Yes Status: Acute (6) Obesity Current Visit: Yes Status: Acute Subjective - Subjective Date of service: 02/12/19 Principal diagnosis: SIUP at 26 weeks with elevated BP and IUGR. Interval history: Patient is a 29 year old at 26 weeks and 2 days gestation who was admitted from the clinic for elevated blood pressure. Her BPs in clinic were 150/100s. She denied any headache, visual changes or RUQ pain. She reported good movement. She was started on labetolol BID. Since her admission, her BPs have been stable in the 100-160/60-90's. She has a history of preeclampsia at 24 and 30 weeks with subsequent delivery via section x 2. Her 24-hr urine protein in 12/2018 was 467mg and 625mg one week ago. 24-hr urine is now 5641 mg. She is a gestational diabetic (GDMA1). She is co-managed with [facility] for CHTN and IUGR. BPP 88. Cord doppler was normal 02/09. She denies any complaint today. She reports good movement. Patient reports: movement normal, no new complaints, no loss of fluid, no vaginal bleeding, no contractions Objective - Vital Signs Vital Signs: Vital Signs - 12hr 02/12/19 02/12/19 02/12/19 04:57 08:36 10:39 Temperature 97.6 F Pulse Rate 72 78 82 Respiratory 18 Rate Blood Pressure 160/80 139/75 152/76 02/12/19 10:40 Temperature Pulse Rate 82 Respiratory Rate Blood Pressure 152/76 - Exam Cardiovascular: Normal S1, Normal S2 Lungs: Clear to auscultation Vulva: both: normal FHR: category 1 Uterine Contraction Monitor Mode: External Uterine Contraction Pattern: Absent Deep Tendon Reflex Grade: Normal +2 - Labs Labs: Abnormal Labs 02/07/19 02/07/19 02/07/19 15:00 15:00 21:03 WBC 11.7 H RBC 3.33 L MCV 99 H MCH 34 H Sodium 136 L Creatinine 0.6 L POC Glucose 116 H Lactate Dehydrogenase 273 H Total Protein 6.1 L Albumin 3.5 L Ur Total Protein 24 Hr Urine Total Protein 02/08/19 02/08/19 02/08/19 10:40 13:51 14:46 WBC 11.4 H RBC 3.38 L MCV 102 H MCH 35 H Sodium Creatinine POC Glucose 107 H 112 H Lactate Dehydrogenase Total Protein Albumin Ur Total Protein 24 Hr Urine Total Protein 02/08/19 02/08/19 02/08/19 14:46 19:23 20:01 WBC RBC MCV MCH Sodium Creatinine POC Glucose 112 H Lactate Dehydrogenase 218 H Total Protein Albumin Ur Total Protein 24 Hr 286.00 H Urine Total Protein 13 H 02/09/19 02/09/19 02/09/19 06:16 10:10 15:49 WBC RBC MCV MCH Sodium Creatinine POC Glucose 147 H 155 H 119 H Lactate Dehydrogenase Total Protein Albumin Ur Total Protein 24 Hr Urine Total Protein 02/10/19 02/10/19 02/10/19 08:15 08:42 08:42 WBC 21.6 H RBC 3.36 L MCV 101 H MCH 34 H Sodium Creatinine 0.6 L POC Glucose 156 H Lactate Dehydrogenase 229 H Total Protein Albumin Ur Total Protein 24 Hr Urine Total Protein 02/10/19 02/10/19 02/11/19 12:22 20:15 06:35 WBC RBC MCV MCH Sodium Creatinine POC Glucose 124 H 108 H 110 H Lactate Dehydrogenase Total Protein Albumin Ur Total Protein 24 Hr Urine Total Protein 02/12/19 07:28 WBC RBC MCV MCH Sodium Creatinine POC Glucose 67 L Lactate Dehydrogenase Total Protein Albumin Ur Total Protein 24 Hr Urine Total Protein Laboratory Results - last 24 hr 02/07/19 02/07/19 02/07/19 18:35 18:35 18:35 Lupus Anticoagulant see below POC Glucose Plad-4-Yayjwxjssoyou 1.71 Cardiolipid IgG Ab <14 Cardiolipid IgA Ab <11 Cardiolipid IgM Ab <12 02/11/19 02/11/19 02/11/19 13:03 15:45 20:26 Lupus Anticoagulant POC Glucose 81 71 98 Ngyy-5-Gzciytodgcpem Cardiolipid IgG Ab Cardiolipid IgA Ab Cardiolipid IgM Ab 02/12/19 02/12/19 07:28 10:40 Lupus Anticoagulant POC Glucose 67 L 90 Mima-3-Fxspzbcfrypli Cardiolipid IgG Ab Cardiolipid IgA Ab Cardiolipid IgM Ab - Results US- obstetric: report reviewed
[2019-02-12 13:10] LABS: Hematocrit 32.3 % (30.3-42.9); Hemoglobin 11.4 gm/dl (10.1-14.3); Mean Corpuscular HGB Conc 35 % (30-34); Mean Corpuscular Volume 99 fl (79-97); Platelet Count 226 K/mm3 (140-440); Red Blood Count 3.26 M/mm3 (3.65-5.03); Red Cell Distribution Width 14.3 % (13.2-15.2)
--- NOTE | 2019-02-12 13:21 | Progress Note ---
Assessment and Plan - Patient Problems (1) 26 weeks gestation of Onset Date: 02/10/19 Current Visit: Yes Status: Acute (2) Chronic hypertension affecting Onset Date: 02/10/19 Current Visit: Yes Status: Acute Plan to address problem: Toxemia labs were normal on admission. Repeat labs today as BP remains elevated. Continue labetolol and BP monitoring. monitoring. [facility] consult done. (3) IUGR (intrauterine growth restriction) Current Visit: Yes Status: Acute Plan to address problem: Sonogram (02/09)showed EFW: 604 gms, BPP 8/8, JESENIA 14.4, cord doppler normal. [facility] consult done. Recommended continue inpatient management. Repeat BPP and cord doppler today. Celestone completed for [facility]. (4) Gestational diabetes Current Visit: Yes Status: Acute Plan to address problem: FS fasting and 2-hr PP. ADA diet. (5) Previous delivery affecting Current Visit: Yes Status: Acute (6) Obesity Current Visit: Yes Status: Acute Subjective - Subjective Date of service: 02/12/19 Principal diagnosis: SIUP at 26 weeks with elevated BP and IUGR. Interval history: Patient is a 29 year old at 26 weeks and 2 days gestation who was admitted from the clinic for elevated blood pressure. Her BPs in clinic were 150/100s. She denied any headache, visual changes or RUQ pain. She reported good movement. She was started on labetolol BID. Since her admission, her BPs have been stable in the 100-160/60-90's. She has a history of preeclampsia at 24 and 30 weeks with subsequent delivery via section x 2. Her 24-hr urine protein in 12/2018 was 467mg and 625mg one week ago. 24-hr urine is now 5641 mg. She is a gestational diabetic (GDMA1). She is co-managed with [facility] for CHTN and IUGR. BPP 88. Cord doppler was normal 02/09. She denies any complaint today. She reports good movement. Patient reports: movement normal, no new complaints, no loss of fluid, no vaginal bleeding, no contractions Objective - Vital Signs Vital Signs: Vital Signs - 12hr 02/12/19 02/12/19 02/12/19 04:57 08:36 10:39 Temperature 97.6 F Pulse Rate 72 78 82 Respiratory 18 Rate Blood Pressure 160/80 139/75 152/76 02/12/19 02/12/19 10:40 12:51 Temperature Pulse Rate 82 89 Respiratory Rate Blood Pressure 152/76 136/68 - Exam Cardiovascular: Normal S1, Normal S2 Lungs: Clear to auscultation Vulva: both: normal FHR: category 1 Uterine Contraction Monitor Mode: External Uterine Contraction Pattern: Absent Deep Tendon Reflex Grade: Normal +2 - Labs Labs: Abnormal Labs 02/07/19 02/07/19 02/07/19 15:00 15:00 21:03 WBC 11.7 H RBC 3.33 L MCV 99 H MCH 34 H MCHC Sodium 136 L Creatinine 0.6 L POC Glucose 116 H Lactate Dehydrogenase 273 H Total Protein 6.1 L Albumin 3.5 L Ur Total Protein 24 Hr Urine Total Protein 02/08/19 02/08/19 02/08/19 10:40 13:51 14:46 WBC 11.4 H RBC 3.38 L MCV 102 H MCH 35 H MCHC Sodium Creatinine POC Glucose 107 H 112 H Lactate Dehydrogenase Total Protein Albumin Ur Total Protein 24 Hr Urine Total Protein 02/08/19 02/08/19 02/08/19 14:46 19:23 20:01 WBC RBC MCV MCH MCHC Sodium Creatinine POC Glucose 112 H Lactate Dehydrogenase 218 H Total Protein Albumin Ur Total Protein 24 Hr 286.00 H Urine Total Protein 13 H 02/09/19 02/09/19 02/09/19 06:16 10:10 15:49 WBC RBC MCV MCH MCHC Sodium Creatinine POC Glucose 147 H 155 H 119 H Lactate Dehydrogenase Total Protein Albumin Ur Total Protein 24 Hr Urine Total Protein 02/10/19 02/10/19 02/10/19 08:15 08:42 08:42 WBC 21.6 H RBC 3.36 L MCV 101 H MCH 34 H MCHC Sodium Creatinine 0.6 L POC Glucose 156 H Lactate Dehydrogenase 229 H Total Protein Albumin Ur Total Protein 24 Hr Urine Total Protein 02/10/19 02/10/19 02/11/19 12:22 20:15 06:35 WBC RBC MCV MCH MCHC Sodium Creatinine POC Glucose 124 H 108 H 110 H Lactate Dehydrogenase Total Protein Albumin Ur Total Protein 24 Hr Urine Total Protein 02/12/19 02/12/19 07:28 12:42 WBC 16.8 H RBC 3.26 L MCV 99 H MCH 35 H MCHC 35 H Sodium Creatinine POC Glucose 67 L Lactate Dehydrogenase Total Protein Albumin Ur Total Protein 24 Hr Urine Total Protein Laboratory Results - last 24 hr 02/07/19 02/07/19 02/07/19 18:35 18:35 18:35 WBC RBC Hgb Hct MCV MCH MCHC RDW Plt Count Lupus Anticoagulant see below POC Glucose Dhtc-9-Dyzrihcvovutc 1.71 Cardiolipid IgG Ab <14 Cardiolipid IgA Ab <11 Cardiolipid IgM Ab <12 02/11/19 02/11/19 02/11/19 13:03 15:45 20:26 WBC RBC Hgb Hct MCV MCH MCHC RDW Plt Count Lupus Anticoagulant POC Glucose 81 71 98 Lzsf-6-Kkeqnelpotzwe Cardiolipid IgG Ab Cardiolipid IgA Ab Cardiolipid IgM Ab 02/12/19 02/12/19 02/12/19 07:28 10:40 12:42 WBC 16.8 H RBC 3.26 L Hgb 11.4 Hct 32.3 MCV 99 H MCH 35 H MCHC 35 H RDW 14.3 Plt Count 226 Lupus Anticoagulant POC Glucose 67 L 90 Fubw-8-Urxmovwuaqkyx Cardiolipid IgG Ab Cardiolipid IgA Ab Cardiolipid IgM Ab - Results US- obstetric: report reviewed
[2019-02-12 13:38] LABS: Alanine Aminotransferase 28 units/L (7-56); Uric Acid 5.7 mg/dL (3.5-7.6)
--- NOTE | 2019-02-12 15:15 | Ultrasound Report ---
ULTRASOUND OB VELOCIMETRY UMBILICAL ARTERY HISTORY: Intrauterine growth restriction. TECHNIQUE: Transabdominal ultrasound. Spectral Doppler interrogation was performed on 3 segments of the umbilical cord. FINDINGS: heart rate measures 138 beats per minute. The spectral waveforms are normal and persistent. No evidence for loss or reversal of end-diastolic flow. The resistive index average measures 0.80. The systolic/diastolic ratio average measures 5.22. IMPRESSION: Elevated resistive indices.
--- NOTE | 2019-02-12 15:15 | Ultrasound Report ---
ULTRASOUND BIOPHYSICAL PROFILE: History: Intrauterine growth restriction Technique: Transabdominal ultrasound with Doppler interrogation. 2 - breathing movements 2 - movements 2 - posture and tone 2 - Qualitative amniotic fluid volume 8 - TOTAL SCORE OF POSSIBLE 8 Heart Rate (bpm) 145
[2019-02-13] MEDS: NORVASC PO SCH (10:59)
[2019-02-13] MEDS: PRENATAL VITAMIN PO SCH (10:59)
[2019-02-13] MEDS: NORMODYNE PO SCH (11:04)
--- NOTE | 2019-02-13 13:03 | Progress Note ---
Assessment and Plan - Patient Problems (1) 26 weeks gestation of Onset Date: 02/10/19 Current Visit: Yes Status: Acute (2) Chronic hypertension affecting Onset Date: 02/10/19 Current Visit: Yes Status: Acute Plan to address problem: Toxemia labs were normal on admission. Continue labetolol 300 mg BID and BP monitoring. monitoring. [facility] consult done. (3) IUGR (intrauterine growth restriction) Current Visit: Yes Status: Acute Plan to address problem: Sonogram (02/09) showed EFW: 604 gms, BPP 8/8, JESENIA 14.4, cord doppler showed elevated S/D ratio but flow is present. [facility] consult done. Recommended continue inpatient management. Repeat BPP and cord doppler in 2 days. Celestone completed for FLM. (4) Gestational diabetes Current Visit: Yes Status: Acute Plan to address problem: FS fasting and 2-hr PP. If glucose uncontrolled, will start insulin regimen. ADA diet. (5) Previous delivery affecting Current Visit: Yes Status: Acute (6) Obesity Current Visit: Yes Status: Acute Subjective - Subjective Date of service: 02/13/19 Principal diagnosis: SIUP at 26 weeks with elevated BP and IUGR. Interval history: Patient is a 29 year old at 26 weeks and 2 days gestation who was admitted from the clinic for elevated blood pressure. Her BPs in clinic were 150/100s. She denied any headache, visual changes or RUQ pain. She reported good movement. She was started on labetolol BID. Since her admission, her BPs have been stable in the 100-160/60-90's. She has a history of preeclampsia at 24 and 30 weeks with subsequent delivery via section x 2. Her 24-hr urine protein in 12/2018 was 467 mg and 625 mg one week ago. She is a gestational diabetic (GDMA1). She is co-managed with [facility] for CHTN and IUGR. BPP 8/8. Cord doppler flow was normal 02/09. On 02/12/19, S/D ratio was elevated to 5.22 but no absent or reversal of the flow. She denies any complaint today. She reports good movement. Patient reports: movement normal, no new complaints, no loss of fluid, no vaginal bleeding, no contractions Objective - Vital Signs Vital Signs: Vital Signs - 12hr 02/13/19 02/13/19 02/13/19 02:02 02:49 04:50 Temperature 98.0 F Pulse Rate 79 68 Respiratory 18 Rate Blood Pressure 152/72 141/65 Blood Pressure [Right] 02/13/19 02/13/19 02/13/19 06:48 07:46 07:47 Temperature 96.9 F L Pulse Rate 75 75 71 Respiratory 16 Rate Blood Pressure 165/93 169/84 142/67 Blood Pressure 142/67 [Right] 02/13/19 02/13/19 02/13/19 09:46 10:58 10:59 Temperature Pulse Rate 73 85 85 Respiratory Rate Blood Pressure 141/84 133/72 133/72 Blood Pressure [Right] 02/13/19 02/13/19 02/13/19 11:46 11:56 11:57 Temperature 96.6 F L Pulse Rate 76 77 77 Respiratory 18 Rate Blood Pressure 144/78 140/84 Blood Pressure 140/84 [Right] - Exam Cardiovascular: Normal S1, Normal S2 Vulva: both: normal FHR: category 1 Uterine Contraction Monitor Mode: External Uterine Contraction Pattern: Absent Deep Tendon Reflex Grade: Normal +2 - Labs Labs: Abnormal Labs 02/07/19 02/07/19 02/07/19 15:00 15:00 21:03 WBC 11.7 H RBC 3.33 L MCV 99 H MCH 34 H MCHC Sodium 136 L Creatinine 0.6 L POC Glucose 116 H Lactate Dehydrogenase 273 H Total Protein 6.1 L Albumin 3.5 L Ur Total Protein 24 Hr Urine Total Protein 02/08/19 02/08/19 02/08/19 10:40 13:51 14:46 WBC 11.4 H RBC 3.38 L MCV 102 H MCH 35 H MCHC Sodium Creatinine POC Glucose 107 H 112 H Lactate Dehydrogenase Total Protein Albumin Ur Total Protein 24 Hr Urine Total Protein 02/08/19 02/08/19 02/08/19 14:46 19:23 20:01 WBC RBC MCV MCH MCHC Sodium Creatinine POC Glucose 112 H Lactate Dehydrogenase 218 H Total Protein Albumin Ur Total Protein 24 Hr 286.00 H Urine Total Protein 13 H 02/09/19 02/09/19 02/09/19 06:16 10:10 15:49 WBC RBC MCV MCH MCHC Sodium Creatinine POC Glucose 147 H 155 H 119 H Lactate Dehydrogenase Total Protein Albumin Ur Total Protein 24 Hr Urine Total Protein 02/10/19 02/10/19 02/10/19 08:15 08:42 08:42 WBC 21.6 H RBC 3.36 L MCV 101 H MCH 34 H MCHC Sodium Creatinine 0.6 L POC Glucose 156 H Lactate Dehydrogenase 229 H Total Protein Albumin Ur Total Protein 24 Hr Urine Total Protein 02/10/19 02/10/19 02/11/19 12:22 20:15 06:35 WBC RBC MCV MCH MCHC Sodium Creatinine POC Glucose 124 H 108 H 110 H Lactate Dehydrogenase Total Protein Albumin Ur Total Protein 24 Hr Urine Total Protein 02/12/19 02/12/19 02/12/19 07:28 12:42 12:42 WBC 16.8 H RBC 3.26 L MCV 99 H MCH 35 H MCHC 35 H Sodium Creatinine POC Glucose 67 L Lactate Dehydrogenase 224 H Total Protein Albumin Ur Total Protein 24 Hr Urine Total Protein Laboratory Results - last 24 hr 02/07/19 02/12/19 02/12/19 18:35 12:42 12:42 WBC 16.8 H RBC 3.26 L Hgb 11.4 Hct 32.3 MCV 99 H MCH 35 H MCHC 35 H RDW 14.3 Plt Count 226 Creatinine 0.7 Estimated GFR > 60 POC Glucose Uric Acid 5.7 AST 20 ALT 28 Lactate Dehydrogenase 224 H Toxoplasma IgG Ab <7.20 Toxoplasma IgM Ab <8.00 02/12/19 02/12/19 02/13/19 15:38 21:14 06:04 WBC RBC Hgb Hct MCV MCH MCHC RDW Plt Count Creatinine Estimated GFR POC Glucose 74 71 83 Uric Acid AST ALT Lactate Dehydrogenase Toxoplasma IgG Ab Toxoplasma IgM Ab - Results US- obstetric: report reviewed
--- NOTE | 2019-02-13 14:09 | Consultation ---
History of Present Illness Consult date: 02/13/19 Requesting physician: CHRISTIN ACOSTA History of present illness: 29 y/o ROSA 05/18/19 now 26 4/7 weeks sent in from OB's office with elevate d BP's sys in 180's per OB Denies ELIAS's [place] or RUQ Pain History of Severe Preeclampsia X 2 with prior pregnancies at 24 and 30 weeks Received IV Hydralazine and is on PO Labetalol 300 BID and Novasc US BPP Dopplers on 02/12/19 88 but elevated cord dopplers - S/D at 5.22 ---- New Diag of GDM 1 Hour GTT at 230 per OB BS Well Controlled on diet ------ BP now on 02/13/19 140'/80's [facility] US also Severe IUGR 01/29/19 [facility] US EFW at 573 grams 6% with AC at 2% 02/07/19 [facility] US EFW still at 573 grams 0% and Cord Dopplers 3.4 to 4.6 Had 24 Hour Urine Prot 469 on 11/01/18 Repeat 24 Hour Protein on 02/08/19 at 286 Labs H/H at Plts at 244 AST/ALT at Creat at .6 ob [id number] C/S 24 wks severe preeclampsia 15oz passed after 2 months 2006 Repeat C/S Severe preeclampsia at 30 weeks 4# also GDM Preg 3 VIP \\ Past History Past Medical History: hypertension (hx preeclampsia x 2), other (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) Past Surgical History: section (x 2 at 24 and 30wks) 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) Past Surgical History: section (x 2 at 24 and 30wks) - Obstetrical History : 4 Medications and Allergies Allergies Allergy/AdvReac Type Severity Reaction Status Date / Time Penicillins AdvReac Severe Swelling Verified 01/29/19 15:09 Home Medications Medication Instructions Recorded Confirmed Last Taken Type Aspirin [Aspirin BABY CHEW TAB] 81 mg PO QDAY 02/10/19 02/10/19 02/06/19 History Labetalol [Labetalol 100mg TAB] 100 mg PO BID 02/10/19 02/10/19 02/07/19 History Vit-Fe Fumar-FA [ 1 tab PO QDAY 02/10/19 02/10/19 02/07/19 History Vitamin] Active Meds: Active Medications Acetaminophen (Tylenol) 650 mg PO Q4H PRN PRN Reason: Pain MILD(1-3)/Fever >100.5/ELIAS Last Admin: 02/08/19 08:45 Dose: 650 mg Documented by: Al Hydrox/Mg Hydrox/Simethicone (Alum-Mag Hydrox-Simeth [phone]/5ml) 30 ml PO Q4H PRN PRN Reason: Indigestion Last Admin: 02/11/19 00:50 Dose: 30 ml Documented by: Amlodipine Besylate (Norvasc) 5 mg PO QDAY [facility] Last Admin: 02/13/19 10:59 Dose: 5 mg Documented by: Diphenhydramine HCl (Benadryl) 25 mg PO Q6H PRN PRN Reason: Itching Docusate Sodium (Colace) 100 mg PO Q12H PRN PRN Reason: Constipation Lactated Ringer's (Lactated Ringers) 1,000 mls @ 125 mls/hr IV DIRECT [facility] Last Admin: 02/12/19 20:50 Dose: 125 mls/hr Documented by: Labetalol HCl (Normodyne) 300 mg PO BID [facility] Last Admin: 02/13/19 11:04 Dose: 300 mg Documented by: Multivitamins/Iron/Calcium ( Vitamin) 1 each PO QDAY [facility] Last Admin: 02/13/19 10:59 Dose: 1 each Documented by: - Vital Signs Vital signs: Vital Signs Pulse BP 89 139/86 02/07/19 14:01 02/07/19 14:01 Temp Pulse Resp BP Pulse Ox 96.6 F L 82 18 146/89 94 02/13/19 11:57 02/13/19 13:46 02/13/19 11:57 02/13/19 13:46 02/11/19 03:28 Results Result Diagrams: 02/12/19 12:42 02/12/19 12:42 All other labs normal. Assessment and Plan Impression: 1. Ramirez IUP at 26 4/7 weeks 2. Preeclampsia 3. H/O Preeclampsia with Past 2 Preg at 24 and 30 weeks 4. Prior C/S X 2 5. Severe IUGR with No growth over past 10 days EFW at 0% ( 02/07/19 at 573 grams - mean would be 873 grams) 6. Elevated Cord Dopplers on 02/12/19 - S/S at 5.22 7. GDM BS controlled 8. Proteinuria Diag 11/01/18 at 469 and repeated on 02/08/19 at 286 Recommendations: 1. S/P Steroids for FLM 2. Mg for neuroprophylaxis given 3. PIH labs twice per week 4. IV hydralazine for BP's sys > 160 or gage > 110 5. Labetalol 300 PO BID and Norvasc 5 q day - continue 6. 1999 ADA diet 7. Seq Leg compressors 8. Will ask US to obtain BPP if possible - Dopplers borderline elevated 9. BPP and cord dopplers twice per week 10. NICU consult 11. Accuchecks fastings and 2 Hour PP's 12. IF BS's high would start Insulin Split dose 30NPH/14Novolog in am 10Novolog at dinner and 10 NPH at bedtime 13. Delivery indicated for nonreassuing A-P testing - Reversal EDF or S/S of severe Preeclampsia - very high risk explained no growth over 10 days is very concerning. Steroids to be given and she is aware that delivery (by C/S) may be indicated
[2019-02-14] MEDS ORDERED: PITOCin/NS 20 UNIT/1000ML DRIP 20,000 MILLIUNITS/1,000 ML BAG IV ONE (02:01)
--- NOTE | 2019-02-14 10:17 | Progress Note ---
Assessment and Plan - Patient Problems (1) Chronic hypertension affecting Onset Date: 02/10/19 Current Visit: Yes Status: Acute (2) Gestational diabetes Current Visit: Yes Status: Acute Subjective - Subjective Principal diagnosis: SIUP at 26 weeks with elevated BP and IUGR. Interval history: 29yo at 26 2/7wks being managed for CHTN S/I preeclampsia in second trimester and gestational diabetes. Preeclampsia - urine protein ranges 250-600s. BP controlled on Norvasc 5mg PO daily and Labetolol 300mg PO BID. GDM - fasting elevations. Patient states she is waking up drinking juice and eating chips in the middle of the night. Eating eggs, sausage and pancakes this morning. Patient reports: movement normal, no new complaints, no loss of fluid, no vaginal bleeding, no contractions Objective - Vital Signs Vital Signs: Vital Signs - 12hr 02/14/19 02/14/19 02/14/19 00:11 00:30 00:54 Temperature 97.6 F 97.6 F Pulse Rate 77 Respiratory 18 Rate Blood Pressure 159/86 02/14/19 02/14/19 02/14/19 01:12 02:10 02:11 Temperature 97.6 F Pulse Rate 70 74 Respiratory 20 Rate Blood Pressure 155/84 135/65 02/14/19 02/14/19 02/14/19 03:11 04:11 04:30 Temperature 97.8 F Pulse Rate 67 66 Respiratory 18 Rate Blood Pressure 141/65 139/79 02/14/19 02/14/19 02/14/19 05:11 06:12 06:15 Temperature 97.8 F Pulse Rate 73 85 Respiratory 20 Rate Blood Pressure 143/72 139/74 02/14/19 02/14/19 02/14/19 07:12 08:11 09:11 Temperature Pulse Rate 68 71 81 Respiratory Rate Blood Pressure 136/75 135/78 142/81 02/14/19 10:13 Temperature Pulse Rate 71 Respiratory Rate Blood Pressure 138/80 - Labs Labs: Abnormal Labs 02/07/19 02/07/19 02/07/19 15:00 15:00 21:03 WBC 11.7 H RBC 3.33 L MCV 99 H MCH 34 H MCHC Sodium 136 L Creatinine 0.6 L POC Glucose 116 H Lactate Dehydrogenase 273 H Total Protein 6.1 L Albumin 3.5 L Ur Total Protein 24 Hr Urine Total Protein 02/08/19 02/08/19 02/08/19 10:40 13:51 14:46 WBC 11.4 H RBC 3.38 L MCV 102 H MCH 35 H MCHC Sodium Creatinine POC Glucose 107 H 112 H Lactate Dehydrogenase Total Protein Albumin Ur Total Protein 24 Hr Urine Total Protein 02/08/19 02/08/19 02/08/19 14:46 19:23 20:01 WBC RBC MCV MCH MCHC Sodium Creatinine POC Glucose 112 H Lactate Dehydrogenase 218 H Total Protein Albumin Ur Total Protein 24 Hr 286.00 H Urine Total Protein 13 H 02/09/19 02/09/19 02/09/19 06:16 10:10 15:49 WBC RBC MCV MCH MCHC Sodium Creatinine POC Glucose 147 H 155 H 119 H Lactate Dehydrogenase Total Protein Albumin Ur Total Protein 24 Hr Urine Total Protein 02/10/19 02/10/19 02/10/19 08:15 08:42 08:42 WBC 21.6 H RBC 3.36 L MCV 101 H MCH 34 H MCHC Sodium Creatinine 0.6 L POC Glucose 156 H Lactate Dehydrogenase 229 H Total Protein Albumin Ur Total Protein 24 Hr Urine Total Protein 02/10/19 02/10/19 02/11/19 12:22 20:15 06:35 WBC RBC MCV MCH MCHC Sodium Creatinine POC Glucose 124 H 108 H 110 H Lactate Dehydrogenase Total Protein Albumin Ur Total Protein 24 Hr Urine Total Protein 02/12/19 02/12/19 02/12/19 07:28 12:42 12:42 WBC 16.8 H RBC 3.26 L MCV 99 H MCH 35 H MCHC 35 H Sodium Creatinine POC Glucose 67 L Lactate Dehydrogenase 224 H Total Protein Albumin Ur Total Protein 24 Hr Urine Total Protein 02/13/19 16:46 WBC RBC MCV MCH MCHC Sodium Creatinine POC Glucose 66 L Lactate Dehydrogenase Total Protein Albumin Ur Total Protein 24 Hr Urine Total Protein Laboratory Results - last 24 hr 02/13/19 02/13/19 02/13/19 12:01 16:46 20:04 POC Glucose 86 66 L 78 02/14/19 06:53 POC Glucose 71
[2019-02-14] MEDS: NORVASC PO SCH (10:35)
[2019-02-14] MEDS: NORMODYNE PO SCH ×2 (10:35→22:52)
[2019-02-14] MEDS: PRENATAL VITAMIN PO SCH (11:52)
--- NOTE | 2019-02-15 08:37 | Progress Note ---
Assessment and Plan - Patient Problems (1) 26 weeks gestation of Onset Date: 02/10/19 Current Visit: Yes Status: Acute Plan to address problem: A: IUP @ 26 6/7 weeks Chronic hypertension - controlled GDM - stable Severe IUGR ( 0%) P: Continue on Labetalol 300 BID and amlodipine 5mg QD Continue present management Repeat Dopplers today. (2) Chronic hypertension affecting Onset Date: 02/10/19 Current Visit: Yes Status: Acute Subjective - Subjective Date of service: 02/15/19 Principal diagnosis: SIUP at 26 6/7 weeks with elevated BP and IUGR. Interval history: Patient is a 29 year old at 26 6/7weeks gestation who was admitted 8 days ago for elevated blood pressure. Her BPs in clinic were 150/100s. She denied any headache, visual changes or RUQ pain. She reported good movement. She was started on labetolol BID. Since her admission, her BPs have been stable in the 100-160/60-90's. She has a history of preeclampsia at 24 and 30 weeks with subsequent delivery via section x 2. Her 24-hr urine protein in 12/2018 was 467mg and 625mg one week ago. She is a gestational diabetic (GDMA1). She is co-managed with [facility] for CHTN and Severe IUGR ( No growth over past 10 days - 0%) BPP 8/8. Cord doppler was elevated on 02/12/19. Today she denies headaches or blurred vision, feeling well and wants to go home. Patient reports: movement normal, no new complaints, no loss of fluid, no vaginal bleeding, no contractions Objective - Vital Signs Vital Signs: Vital Signs - 12hr 02/14/19 02/14/19 02/14/19 21:11 22:12 22:52 Temperature Pulse Rate 86 79 79 Blood Pressure 143/81 143/86 143/86 02/15/19 02/15/19 02/15/19 01:11 03:00 05:32 Temperature 97.2 F L Pulse Rate 75 69 Blood Pressure 135/74 141/71 02/15/19 02/15/19 06:33 07:33 Temperature Pulse Rate 68 63 Blood Pressure 148/70 139/73 - Exam Abdomen: Present: normal appearance, soft Uterus: Present: normal FHR: category 1 Uterine Contraction Monitor Mode: External Uterine Contraction Pattern: Absent - Labs Labs: Abnormal Labs 02/07/19 02/07/19 02/07/19 15:00 15:00 21:03 WBC 11.7 H RBC 3.33 L MCV 99 H MCH 34 H MCHC Sodium 136 L Creatinine 0.6 L POC Glucose 116 H Lactate Dehydrogenase 273 H Total Protein 6.1 L Albumin 3.5 L Ur Total Protein 24 Hr Urine Total Protein 02/08/19 02/08/19 02/08/19 10:40 13:51 14:46 WBC 11.4 H RBC 3.38 L MCV 102 H MCH 35 H MCHC Sodium Creatinine POC Glucose 107 H 112 H Lactate Dehydrogenase Total Protein Albumin Ur Total Protein 24 Hr Urine Total Protein 02/08/19 02/08/19 02/08/19 14:46 19:23 20:01 WBC RBC MCV MCH MCHC Sodium Creatinine POC Glucose 112 H Lactate Dehydrogenase 218 H Total Protein Albumin Ur Total Protein 24 Hr 286.00 H Urine Total Protein 13 H 02/09/19 02/09/19 02/09/19 06:16 10:10 15:49 WBC RBC MCV MCH MCHC Sodium Creatinine POC Glucose 147 H 155 H 119 H Lactate Dehydrogenase Total Protein Albumin Ur Total Protein 24 Hr Urine Total Protein 02/10/19 02/10/19 02/10/19 08:15 08:42 08:42 WBC 21.6 H RBC 3.36 L MCV 101 H MCH 34 H MCHC Sodium Creatinine 0.6 L POC Glucose 156 H Lactate Dehydrogenase 229 H Total Protein Albumin Ur Total Protein 24 Hr Urine Total Protein 02/10/19 02/10/19 02/11/19 12:22 20:15 06:35 WBC RBC MCV MCH MCHC Sodium Creatinine POC Glucose 124 H 108 H 110 H Lactate Dehydrogenase Total Protein Albumin Ur Total Protein 24 Hr Urine Total Protein 02/12/19 02/12/19 02/12/19 07:28 12:42 12:42 WBC 16.8 H RBC 3.26 L MCV 99 H MCH 35 H MCHC 35 H Sodium Creatinine POC Glucose 67 L Lactate Dehydrogenase 224 H Total Protein Albumin Ur Total Protein 24 Hr Urine Total Protein 02/13/19 02/14/19 16:46 21:08 WBC RBC MCV MCH MCHC Sodium Creatinine POC Glucose 66 L 125 H Lactate Dehydrogenase Total Protein Albumin Ur Total Protein 24 Hr Urine Total Protein Laboratory Results - last 24 hr 02/14/19 02/14/19 02/14/19 11:26 16:15 21:08 POC Glucose 89 88 125 H 02/15/19 07:26 POC Glucose 87 - Results US- obstetric: report reviewed
[2019-02-15] MEDS: NORVASC PO SCH (10:14)
[2019-02-15] MEDS: PRENATAL VITAMIN PO SCH (10:15)
[2019-02-15] MEDS: NORMODYNE PO SCH ×2 (10:16→22:27)
--- NOTE | 2019-02-15 14:25 | Ultrasound Report ---
PROCEDURE: US OB VELOCIMETRY UMBILCAL ART TECHNIQUE: Transabdominal OB ultrasound performed with Doppler assessment of the umbilical artery. HISTORY: Severe IUGR COMPARISONS: Prior study 02/09/2018 FINDINGS: Single living intrauterine gestation currently visualized and vertex presentation with a heart rate o f 139 bpm. On the images provided do not of amniotic fluid appears decreased. Systolic to diastolic ratio averages 3.88. One of the sampling however didn't register a systolic to diastolic ratio 4.14 which is elevated. Resistive index is mildly elevated 0.74. Diastolic flow is vi sualized. IMPRESSION: Single living intrauterine gestation currently visualized vertex presentation with a heart rate of 13 9 bpm. The amount of amniotic fluid appears decreased. The images provided suggest oligohydramnios. Systolic to diastolic ratio average is within normal limits however one of the samplings was elevated , 4.14. Resistive index mildly elevated 0.74. Diastolic flow is however visualized.. This document is electronically signed by Jose M Lloyd MD., February 15 2019 03:23:21 PM ET
[2019-02-15] MEDS: ALUM-MAG HYDROX-SIMETH 200-200-20MG/5ML PO PRN (22:32)
[2019-02-16] MEDS: PRENATAL VITAMIN PO SCH (10:26)
[2019-02-16] MEDS: NORMODYNE PO SCH ×2 (10:27→21:55)
[2019-02-16] MEDS: NORVASC PO SCH (10:27)
--- NOTE | 2019-02-16 11:49 | Progress Note ---
Assessment and Plan - Patient Problems (1) 26 weeks gestation of Onset Date: 02/10/19 Current Visit: Yes Status: Acute Plan to address problem: A: IUP @ 27 0/7 weeks Chronic hypertension - controlled GDM - stable Severe IUGR ( 0%) P: Continue on Labetalol 300 BID and amlodipine 5mg QD Continue present management as per [facility] (2) Chronic hypertension affecting Onset Date: 02/10/19 Current Visit: Yes Status: Acute Subjective - Subjective Date of service: 02/16/19 Principal diagnosis: SIUP at 27 0/7weeks with elevated BP and IUGR. Interval history: Patient is a 29 year old at 27 0/7weeks gestation who was admitted 9 days ago for elevated blood pressure. Her BPs in clinic were 150/100s. She denied any headache, visual changes or RUQ pain. She reported good movement. She was started on labetolol BID. Since her admission, her BPs have been stable in the 100-160/60-90's. She has a history of preeclampsia at 24 and 30 weeks with subsequent delivery via section x 2. Her 24-hr urine protein in 12/2018 was 467mg and 625mg one week ago. She is a gestational diabetic (GDMA1) - diet controlled. She is co-managed with [facility] for CHTN and Severe IUGR ( No growth over past 10 days - 0%) BPP 8/8. Cord doppler was Normal on 02/15/19. Today she denies headaches or blurred vision, feeling well and wants to go home. Patient reports: movement normal, no new complaints, no loss of fluid, no vaginal bleeding, no contractions Objective - Vital Signs Vital Signs: Vital Signs - 12hr 02/15/19 02/16/19 02/16/19 23:49 00:50 01:48 Temperature Pulse Rate 89 78 80 Respiratory Rate Blood Pressure 145/75 143/77 149/81 02/16/19 02/16/19 02/16/19 02:27 02:49 03:49 Temperature 98.4 F Pulse Rate 71 78 Respiratory Rate Blood Pressure 151/76 148/72 02/16/19 02/16/19 02/16/19 04:50 06:52 08:48 Temperature Pulse Rate 89 88 75 Respiratory Rate Blood Pressure 142/67 145/79 133/73 02/16/1902/16/19 06/02/19 08:49 09:49 10:27 Temperature 98.4 F Pulse Rate 75 75 Respiratory 18 Rate Blood Pressure 146/73 146/73 - Exam Abdomen: Present: normal appearance, soft Uterus: Present: normal FHR: category 1 Uterine Contraction Monitor Mode: External Uterine Contraction Pattern: Absent - Labs Labs: Abnormal Labs 02/07/19 02/07/19 02/07/19 15:00 15:00 21:03 WBC 11.7 H RBC 3.33 L MCV 99 H MCH 34 H MCHC Sodium 136 L Creatinine 0.6 L POC Glucose 116 H Lactate Dehydrogenase 273 H Total Protein 6.1 L Albumin 3.5 L Ur Total Protein 24 Hr Urine Total Protein 02/08/19 02/08/19 02/08/19 10:40 13:51 14:46 WBC 11.4 H RBC 3.38 L MCV 102 H MCH 35 H MCHC Sodium Creatinine POC Glucose 107 H 112 H Lactate Dehydrogenase Total Protein Albumin Ur Total Protein 24 Hr Urine Total Protein 02/08/19 02/08/19 02/08/19 14:46 19:23 20:01 WBC RBC MCV MCH MCHC Sodium Creatinine POC Glucose 112 H Lactate Dehydrogenase 218 H Total Protein Albumin Ur Total Protein 24 Hr 286.00 H Urine Total Protein 13 H 02/09/19 02/09/19 02/09/19 06:16 10:10 15:49 WBC RBC MCV MCH MCHC Sodium Creatinine POC Glucose 147 H 155 H 119 H Lactate Dehydrogenase Total Protein Albumin Ur Total Protein 24 Hr Urine Total Protein 02/10/19 02/10/19 02/10/19 08:15 08:42 08:42 WBC 21.6 H RBC 3.36 L MCV 101 H MCH 34 H MCHC Sodium Creatinine 0.6 L POC Glucose 156 H Lactate Dehydrogenase 229 H Total Protein Albumin Ur Total Protein 24 Hr Urine Total Protein 02/10/19 02/10/19 02/11/19 12:22 20:15 06:35 WBC RBC MCV MCH MCHC Sodium Creatinine POC Glucose 124 H 108 H 110 H Lactate Dehydrogenase Total Protein Albumin Ur Total Protein 24 Hr Urine Total Protein 02/12/19 02/12/19 02/12/19 07:28 12:42 12:42 WBC 16.8 H RBC 3.26 L MCV 99 H MCH 35 H MCHC 35 H Sodium Creatinine POC Glucose 67 L Lactate Dehydrogenase 224 H Total Protein Albumin Ur Total Protein 24 Hr Urine Total Protein 02/13/19 02/14/19 02/15/19 16:46 21:08 10:25 WBC RBC MCV MCH MCHC Sodium Creatinine POC Glucose 66 L 125 H 115 H Lactate Dehydrogenase Total Protein Albumin Ur Total Protein 24 Hr Urine Total Protein 02/15/19 22:52 WBC RBC MCV MCH MCHC Sodium Creatinine POC Glucose 106 H Lactate Dehydrogenase Total Protein Albumin Ur Total Protein 24 Hr Urine Total Protein Laboratory Results - last 24 hr 02/15/19 02/15/19 02/16/19 17:41 22:52 07:00 POC Glucose 96 106 H 74 02/16/19 10:44 POC Glucose 83
[2019-02-17 08:26] LABS: Hematocrit 35.3 % (30.3-42.9); Hemoglobin 12.3 gm/dl (10.1-14.3); Mean Corpuscular HGB Conc 35 % (30-34); Mean Corpuscular Volume 99 fl (79-97); Platelet Count 224 K/mm3 (140-440); Red Blood Count 3.56 M/mm3 (3.65-5.03); Red Cell Distribution Width 14.5 % (13.2-15.2)
[2019-02-17 08:48] LABS: Alanine Aminotransferase 17 units/L (7-56)
--- NOTE | 2019-02-17 08:56 | Ultrasound Report ---
ULTRASOUND BIOPHYSICAL PROFILE: History: well being Technique: Transabdominal ultrasound with Doppler interrogation. 2 - breathing movements 2 - movements 2 - posture and tone 2 - Qualitative amniotic fluid volume 8 - TOTAL SCORE OF POSSIBLE 8 Heart Rate (bpm) 133
--- NOTE | 2019-02-17 08:57 | Ultrasound Report ---
ULTRASOUND OB VELOCIMETRY UMBILICAL ARTERY HISTORY: Intrauterine growth restriction. TECHNIQUE: Transabdominal ultrasound. Spectral Doppler interrogation was performed on 3 segments of the umbilical cord. FINDINGS: heart rate measures 133 beats per minute. The spectral waveforms are normal and persistent. No evidence for loss or reversal of end-diastolic flow. The resistive index average measures 0.70. The systolic/diastolic ratio average measures 3.42.
[2019-02-17] MEDS: NORVASC PO SCH (10:06)
[2019-02-17] MEDS: NORMODYNE PO SCH ×2 (10:06→23:36)
[2019-02-17] MEDS: PRENATAL VITAMIN PO SCH (10:06)
--- NOTE | 2019-02-17 10:17 | Progress Note ---
Assessment and Plan - Patient Problems (1) Gestational diabetes Current Visit: Yes Status: Acute Plan to address problem: BG well controlled. (2) 27 weeks gestation of Current Visit: Yes Status: Acute (3) Chronic hypertension with superimposed preeclampsia Current Visit: Yes Status: Acute Plan to address problem: Comanaged with [facility]. s/p steroids s/p magnesium sulfate BP elevated yesterday 180s/70s. Will verify Hydralazine prn orders written. Current BP 140/70. Contine Labetolol and Norvasc. Subjective - Subjective Principal diagnosis: SIUP at 27 0/7weeks with elevated BP and IUGR. Interval history: 29yo at 26 2/7wks being managed for CHTN S/I preeclampsia in second trimester and gestational diabetes. Preeclampsia - urine protein ranges 250-600s. BP controlled on Norvasc 5mg PO daily and Labetolol 300mg PO BID. GDM - fasting elevations. Patient states she is waking up drinking juice and eating chips in the middle of the night. Eating eggs, sausage and pancakes this morning. Patient reports: movement normal, no new complaints, no loss of fluid, no vaginal bleeding, no contractions Objective - Vital Signs Vital Signs: Vital Signs - 12hr 02/16/19 02/16/19 02/16/19 22:29 22:44 23:00 Temperature Pulse Rate 75 74 73 Respiratory Rate Blood Pressure 154/84 152/81 138/78 02/16/19 02/16/19 02/17/19 23:07 23:37 00:05 Temperature Pulse Rate 75 71 73 Respiratory Rate Blood Pressure 147/79 136/70 148/81 02/17/19 02/17/19 02/17/19 09:05 09:11 10:04 Temperature 97.3 F L Pulse Rate 71 82 Respiratory 18 Rate Blood Pressure 144/94 144/75 - Labs Labs: Abnormal Labs 02/07/19 02/07/19 02/07/19 15:00 15:00 21:03 WBC 11.7 H RBC 3.33 L MCV 99 H MCH 34 H MCHC Sodium 136 L Creatinine 0.6 L POC Glucose 116 H Lactate Dehydrogenase 273 H Total Protein 6.1 L Albumin 3.5 L Ur Total Protein 24 Hr Urine Total Protein 02/08/19 02/08/19 02/08/19 10:40 13:51 14:46 WBC 11.4 H RBC 3.38 L MCV 102 H MCH 35 H MCHC Sodium Creatinine POC Glucose 107 H 112 H Lactate Dehydrogenase Total Protein Albumin Ur Total Protein 24 Hr Urine Total Protein 02/08/19 02/08/19 02/08/19 14:46 19:23 20:01 WBC RBC MCV MCH MCHC Sodium Creatinine POC Glucose 112 H Lactate Dehydrogenase 218 H Total Protein Albumin Ur Total Protein 24 Hr 286.00 H Urine Total Protein 13 H 02/09/19 02/09/19 02/09/19 06:16 10:10 15:49 WBC RBC MCV MCH MCHC Sodium Creatinine POC Glucose 147 H 155 H 119 H Lactate Dehydrogenase Total Protein Albumin Ur Total Protein 24 Hr Urine Total Protein 02/10/19 02/10/19 02/10/19 08:15 08:42 08:42 WBC 21.6 H RBC 3.36 L MCV 101 H MCH 34 H MCHC Sodium Creatinine 0.6 L POC Glucose 156 H Lactate Dehydrogenase 229 H Total Protein Albumin Ur Total Protein 24 Hr Urine Total Protein 02/10/19 02/10/19 02/11/19 12:22 20:15 06:35 WBC RBC MCV MCH MCHC Sodium Creatinine POC Glucose 124 H 108 H 110 H Lactate Dehydrogenase Total Protein Albumin Ur Total Protein 24 Hr Urine Total Protein 02/12/19 02/12/19 02/12/19 07:28 12:42 12:42 WBC 16.8 H RBC 3.26 L MCV 99 H MCH 35 H MCHC 35 H Sodium Creatinine POC Glucose 67 L Lactate Dehydrogenase 224 H Total Protein Albumin Ur Total Protein 24 Hr Urine Total Protein 02/13/19 02/14/19 02/15/19 16:46 21:08 10:25 WBC RBC MCV MCH MCHC Sodium Creatinine POC Glucose 66 L 125 H 115 H Lactate Dehydrogenase Total Protein Albumin Ur Total Protein 24 Hr Urine Total Protein 02/15/19 02/17/19 02/17/19 22:52 07:55 07:55 WBC 11.8 H RBC 3.56 L MCV 99 H MCH 35 H MCHC 35 H Sodium Creatinine POC Glucose 106 H Lactate Dehydrogenase 256 H Total Protein Albumin Ur Total Protein 24 Hr Urine Total Protein Laboratory Results - last 24 hr 02/16/19 02/16/19 02/16/19 10:44 14:50 19:47 WBC RBC Hgb Hct MCV MCH MCHC RDW Plt Count Creatinine Estimated GFR POC Glucose 83 73 95 AST ALT Lactate Dehydrogenase 02/17/19 02/17/19 02/17/19 06:56 07:55 07:55 WBC 11.8 H RBC 3.56 L Hgb 12.3 Hct 35.3 MCV 99 H MCH 35 H MCHC 35 H RDW 14.5 Plt Count 224 Creatinine 0.7 Estimated GFR > 60 POC Glucose 78 AST 14 ALT 17 Lactate Dehydrogenase 256 H
--- NOTE | 2019-02-17 13:43 | Progress Note ---
Assessment and Plan Impression: 1. Ramirez IUP at 27.1 weeks 2. Preeclampsia 3. H/O Preeclampsia with Past 2 Preg at 24 and 30 weeks 4. Prior C/S X 2 5. Severe IUGR with No prior growth over past 10 days EFW at 0% ( 02/07/19 at 573 grams - mean would be 873 grams) 6. 02/17/19 Reassuring BPP and Doppler previously Elevated Cord Dopplers on 02/12/19 - S/S at 5.22 7. GDM BS controlled 8. Proteinuria Diag 11/01/18 at 469 and repeated on 02/08/19 at 286 9. CHTN Stable BP under her current medical therapy with NO WHIZZER features Recommendations: 1. S/P Steroids for FLM 2. S/P Mg for neuroprophylaxis 3. As previously recommended PIH labs twice per week 4. IV hydralazine for BP's sys > 160 or gage > 110 5. Continue Labetalol 300 PO BID and Norvasc 5 q day 6. 2000 ADA diet 7. Seq Leg compressors 8. Will ask US to obtain BPP if possible - 9. BPP and cord dopplers twice per week 10. Provide NICU consult At 27 weeks gestation; it would appear that there is some benefit to an expectant management protocol to prolong gestation in order to improve outcome without increasing maternal morbidity. In a patient with MILD preeclampsia we recommend DELIVERY at 37 weeks. In a patient with SEVERE preeclampsia we recommend DELIVERY either AT DIAGNOSIS or at 34 weeks gestation. Reference: REFERENCE: Medically indicated late- and early-term deliveries. Committee Opinion No. [id number]. [employer]. Obstet Gynecol 2013;121:06809. The indications for discontinuation of expectant management and DELIVERY in this patient would include ANY of the following: heart rate abnormalities, (ie, bradycardia , repetitive late or variable decelerations) Significant new onset proteinuria (see above) Thrombocytopenia Hemolysis, Elevation in liver function tests Blood pressure that is very labile or poorly controlled with reasonable doses of intravenous labetalol Symptoms of severe pre-eclampsia epigastric discomfort, headache, dizziness, blurred vision, RUQ pain, seizure. Standard obstetrical indications ' With concerns Primary OB to call Dr. Cox Subjective - Subjective Principal diagnosis: SIUP at 27 0/7weeks with elevated BP and IUGR. Interval history: 29 y/o ROSA 05/18/19 now27.1 weeks sent in from OB's office with elevated BP's sys in 180's per OB Denies ELIAS's [place] or RUQ Pain History of Severe Preeclampsia X 2 with prior pregnancies at 24 and 30 weeks Received IV Hydralazine and is on PO Labetalol 300 BID and Novasc ---- New Diag of GDM 1 Hour GTT at 230 per OB BS Well Controlled on diet ------ BP now on 02/13/19 140'/80's [facility] US also Severe IUGR 01/29/19 [facility] US EFW at 573 grams 6% with AC at 2% 02/07/19 [facility] US EFW was still at 573 grams 0% Had 24 Hour Urine Prot 469 on 11/01/18 Repeat 24 Hour Protein on 02/08/19 at 286 Patient reports: movement normal, other, no new complaints, no loss of fluid, no vaginal bleeding, no contractions Objective - Vital Signs Vital Signs: Vital Signs - 12hr 02/17/19 02/17/19 02/17/19 09:05 09:11 10:04 Temperature 97.3 F L Pulse Rate 71 82 Respiratory 18 Rate Blood Pressure 144/94 144/75 02/17/19 02/17/19 10:06 12:26 Temperature Pulse Rate 82 89 Respiratory Rate Blood Pressure 144/75 132/70 - Exam Breasts: deferred Cardiovascular: Regular rate Lungs: Normal air movement Abdomen: Present: other (gravid). Absent: tenderness, guarding Uterus: Absent: tenderness FHR: category 1 (for 27 weeks) Uterine Contraction Monitor Mode: External Uterine Contraction Pattern: Absent Deep Tendon Reflex Grade: Normal +2 - Labs Labs: Abnormal Labs 02/07/19 02/07/19 02/07/19 15:00 15:00 21:03 WBC 11.7 H RBC 3.33 L MCV 99 H MCH 34 H MCHC Sodium 136 L Creatinine 0.6 L POC Glucose 116 H Lactate Dehydrogenase 273 H Total Protein 6.1 L Albumin 3.5 L Ur Total Protein 24 Hr Urine Total Protein 02/08/19 02/08/19 02/08/19 10:40 13:51 14:46 WBC 11.4 H RBC 3.38 L MCV 102 H MCH 35 H MCHC Sodium Creatinine POC Glucose 107 H 112 H Lactate Dehydrogenase Total Protein Albumin Ur Total Protein 24 Hr Urine Total Protein 02/08/19 02/08/19 02/08/19 14:46 19:23 20:01 WBC RBC MCV MCH MCHC Sodium Creatinine POC Glucose 112 H Lactate Dehydrogenase 218 H Total Protein Albumin Ur Total Protein 24 Hr 286.00 H Urine Total Protein 13 H 02/09/19 02/09/19 02/09/19 06:16 10:10 15:49 WBC RBC MCV MCH MCHC Sodium Creatinine POC Glucose 147 H 155 H 119 H Lactate Dehydrogenase Total Protein Albumin Ur Total Protein 24 Hr Urine Total Protein 02/10/19 02/10/19 02/10/19 08:15 08:42 08:42 WBC 21.6 H RBC 3.36 L MCV 101 H MCH 34 H MCHC Sodium Creatinine 0.6 L POC Glucose 156 H Lactate Dehydrogenase 229 H Total Protein Albumin Ur Total Protein 24 Hr Urine Total Protein 02/10/19 02/10/19 02/11/19 12:22 20:15 06:35 WBC RBC MCV MCH MCHC Sodium Creatinine POC Glucose 124 H 108 H 110 H Lactate Dehydrogenase Total Protein Albumin Ur Total Protein 24 Hr Urine Total Protein 02/12/19 02/12/19 02/12/19 07:28 12:42 12:42 WBC 16.8 H RBC 3.26 L MCV 99 H MCH 35 H MCHC 35 H Sodium Creatinine POC Glucose 67 L Lactate Dehydrogenase 224 H Total Protein Albumin Ur Total Protein 24 Hr Urine Total Protein 02/13/19 02/14/19 02/15/19 16:46 21:08 10:25 WBC RBC MCV MCH MCHC Sodium Creatinine POC Glucose 66 L 125 H 115 H Lactate Dehydrogenase Total Protein Albumin Ur Total Protein 24 Hr Urine Total Protein 02/15/19 02/17/19 02/17/19 22:52 07:55 07:55 WBC 11.8 H RBC 3.56 L MCV 99 H MCH 35 H MCHC 35 H Sodium Creatinine POC Glucose 106 H Lactate Dehydrogenase 256 H Total Protein Albumin Ur Total Protein 24 Hr Urine Total Protein 02/17/19 11:41 WBC RBC MCV MCH MCHC Sodium Creatinine POC Glucose 117 H Lactate Dehydrogenase Total Protein Albumin Ur Total Protein 24 Hr Urine Total Protein Laboratory Results - last 24 hr 02/07/19 02/16/19 02/16/19 18:35 14:50 19:47 WBC RBC Hgb Hct MCV MCH MCHC RDW Plt Count Creatinine Estimated GFR POC Glucose 73 95 AST ALT Lactate Dehydrogenase CMV DNA PCR log helicopter crew chief/mL See scanned report 02/17/19 02/17/19 02/17/19 06:56 07:55 07:55 WBC 11.8 H RBC 3.56 L Hgb 12.3 Hct 35.3 MCV 99 H MCH 35 H MCHC 35 H RDW 14.5 Plt Count 224 Creatinine 0.7 Estimated GFR > 60 POC Glucose 78 AST 14 ALT 17 Lactate Dehydrogenase 256 H CMV DNA PCR log helicopter crew chief/mL 02/17/19 11:41 WBC RBC Hgb Hct MCV MCH MCHC RDW Plt Count Creatinine Estimated GFR POC Glucose 117 H AST ALT Lactate Dehydrogenase CMV DNA PCR log helicopter crew chief/mL - Results US- obstetric: report reviewed (SEE [facility] for full report )
[2019-02-18] MEDS: NORVASC PO SCH (09:49)
[2019-02-18] MEDS: PRENATAL VITAMIN PO SCH (09:53)
[2019-02-18] MEDS: NORMODYNE PO SCH ×3 (09:53→22:45)
[2019-02-18] MEDS: LACTATED RINGERS 1,000 ML IV SCH ×2 (10:20→18:29)
--- NOTE | 2019-02-18 15:20 | Progress Note ---
Assessment and Plan ASSESSMENT IUP at 27 weeks 2 day gestation. Chronic hypertension; rule out superimposed preeclampsia. Gestational diabetes no current medications. Morbid obesity. Improved blood pressure Improved blood sugar values Intrauterine growth restriction history of preeclampsia. Proteinuria: 286 mg on 02/12/19 Maintain current Labetalol RECOMMENDATIONS 1. No changes or insulin coverage at this time. 2. Continue Labetalol as written. 3. Continue to monitor her course BPP Twice per week 4. Delivery for signs or symptoms of Severe Preeclampsia or compromise 5. Patient is NOT a candidate for discharge at this time based on previous presentation and elevated proteinuria. 6. Agree with admission for serial BP, urinalysis, PIH labs and observation. ? Kindly contact [facility] if there is any question as to whether this patient is a candidate for delivery. ? At 27+ weeks gestation; it would appear that there is some benefit to an expectant management protocol to prolong gestation in order to improve outcome without increasing maternal morbidity. ? In a patient with MILD preeclampsia we recommend DELIVERY at 37 weeks. ? In a patient with SEVERE preeclampsia we recommend DELIVERY either AT DIAGNOSIS or at 34 weeks gestation. Reference: REFERENCE: Medically indicated late- and early-term deliveries. Committee Opinion No. [id number]. [employer]. Obstet Gynecol 2013;121:90754. ? The indications for discontinuation of expectant management and DELIVERY in this patient would include ANY of the following: heart rate abnormalities, (ie, bradycardia , repetitive late or variable decelerations) Significant new onset proteinuria (see above) Thrombocytopenia Hemolysis, Elevation in liver function tests Blood pressure that is very labile or poorly controlled with reasonable doses of intravenous labetalol Symptoms of severe pre-eclampsia epigastric discomfort, headache, dizziness, blurred vision, RUQ pain, seizure. Standard obstetrical indications 7. We will follow this patient. Thank you for allowing us to participate in the care of this patient. We look forward to the opportunity to assist in her continued management. If you have any questions, we may be reached [phone]. Jono Alfred M.D. Subjective - Subjective Date of service: 02/18/19 Principal diagnosis: SIUP at 27 0/7weeks with elevated BP and IUGR. Interval history: Indication for Admission: IUP at 27 weeks 2 day gestation. Chronic hypertension; rule out superimposed preeclampsia. Gestational diabetes no current medications. Morbid obesity. Improved blood pressure Improved blood sugar values Intrauterine growth restriction history of preeclampsia. Proteinuria: 286 mg on 02/12/19 Maintain current Labetalol CURRENT PRESENTATION: Thank you for your recent consultation regarding the above named patient. As you are aware, this is a 29 year old para 0211 at 27 weeks 2 day (based on an ROSA of 05/18/19) who is currently admitted due to chronic hypertension with possible superimposed preeclampsia she was also noted to have elevated blood sugar values at present. At present she is without complaints. She denies vaginal bleeding, fluid leakage or abdominal pain. She specifically denies headache, dizziness or blurred vision. CURRENT MEDICATION: See notes in chart. Labetalol at 300 mg BID At present she DENIES to ongoing headache. PAST OBSTETRICAL HISTORY: See notes in patients chart. PREVIOUS MEDICAL HISTORY: . See notes in chart. PHYSICAL EXAM: o Recent BPs see notes in chart. o No periorbital edema o Abdomen: Soft, obese, non-distended, fundal height c/w EGA o General: Patient admits to good movement. [facility] Ultrasonography See previous note in chart. FHR Tracing: Category 1 Available Admission Labs: See report in chart. No evidence of HELLP syndrome RECENT FSG RESULTS: See reports in chart. Patient reports: movement normal, other, no new complaints, no loss of fluid, no vaginal bleeding, no contractions Objective - Vital Signs Vital Signs: Vital Signs - 12hr 02/18/19 02/18/19 02/18/19 03:17 03:38 03:59 Temperature Pulse Rate 82 76 76 Respiratory Rate Blood Pressure 152/78 130/67 146/73 02/18/19 02/18/19 02/18/19 04:17 04:38 04:57 Temperature Pulse Rate 73 74 83 Respiratory Rate Blood Pressure 145/70 139/72 133/79 02/18/19 02/18/19 02/18/19 05:17 06:25 07:25 Temperature Pulse Rate 70 71 80 Respiratory Rate Blood Pressure 142/73 150/78 157/78 02/18/19 02/18/19 02/18/19 08:25 08:47 09:25 Temperature 97.7 F Pulse Rate 75 82 Respiratory 14 Rate Blood Pressure 153/85 140/89 02/18/19 02/18/19 02/18/19 09:50 10:25 11:25 Temperature Pulse Rate 83 81 79 Respiratory Rate Blood Pressure 162/88 139/83 141/80 02/18/19 02/18/19 12:25 14:43 Temperature Pulse Rate 82 81 Respiratory Rate Blood Pressure 134/74 156/90 - Labs Labs: Abnormal Labs 02/07/19 02/07/19 02/07/19 15:00 15:00 21:03 WBC 11.7 H RBC 3.33 L MCV 99 H MCH 34 H MCHC Sodium 136 L Creatinine 0.6 L POC Glucose 116 H Lactate Dehydrogenase 273 H Total Protein 6.1 L Albumin 3.5 L Ur Total Protein 24 Hr Urine Total Protein 02/08/19 02/08/19 02/08/19 10:40 13:51 14:46 WBC 11.4 H RBC 3.38 L MCV 102 H MCH 35 H MCHC Sodium Creatinine POC Glucose 107 H 112 H Lactate Dehydrogenase Total Protein Albumin Ur Total Protein 24 Hr Urine Total Protein 02/08/19 02/08/19 02/08/19 14:46 19:23 20:01 WBC RBC MCV MCH MCHC Sodium Creatinine POC Glucose 112 H Lactate Dehydrogenase 218 H Total Protein Albumin Ur Total Protein 24 Hr 286.00 H Urine Total Protein 13 H 02/09/19 02/09/19 02/09/19 06:16 10:10 15:49 WBC RBC MCV MCH MCHC Sodium Creatinine POC Glucose 147 H 155 H 119 H Lactate Dehydrogenase Total Protein Albumin Ur Total Protein 24 Hr Urine Total Protein 02/10/19 02/10/19 02/10/19 08:15 08:42 08:42 WBC 21.6 H RBC 3.36 L MCV 101 H MCH 34 H MCHC Sodium Creatinine 0.6 L POC Glucose 156 H Lactate Dehydrogenase 229 H Total Protein Albumin Ur Total Protein 24 Hr Urine Total Protein 02/10/19 02/10/19 02/11/19 12:22 20:15 06:35 WBC RBC MCV MCH MCHC Sodium Creatinine POC Glucose 124 H 108 H 110 H Lactate Dehydrogenase Total Protein Albumin Ur Total Protein 24 Hr Urine Total Protein 02/12/19 02/12/19 02/12/19 07:28 12:42 12:42 WBC 16.8 H RBC 3.26 L MCV 99 H MCH 35 H MCHC 35 H Sodium Creatinine POC Glucose 67 L Lactate Dehydrogenase 224 H Total Protein Albumin Ur Total Protein 24 Hr Urine Total Protein 02/13/19 02/14/19 02/15/19 16:46 21:08 10:25 WBC RBC MCV MCH MCHC Sodium Creatinine POC Glucose 66 L 125 H 115 H Lactate Dehydrogenase Total Protein Albumin Ur Total Protein 24 Hr Urine Total Protein 02/15/19 02/17/19 02/17/19 22:52 07:55 07:55 WBC 11.8 H RBC 3.56 L MCV 99 H MCH 35 H MCHC 35 H Sodium Creatinine POC Glucose 106 H Lactate Dehydrogenase 256 H Total Protein Albumin Ur Total Protein 24 Hr Urine Total Protein 02/17/19 02/18/19 11:41 11:57 WBC RBC MCV MCH MCHC Sodium Creatinine POC Glucose 117 H 67 L Lactate Dehydrogenase Total Protein Albumin Ur Total Protein 24 Hr Urine Total Protein Laboratory Results - last 24 hr 02/17/19 02/17/19 02/18/19 15:20 20:09 07:31 POC Glucose 71 100 81 02/18/19 02/18/19 11:57 15:07 POC Glucose 67 L 79
--- NOTE | 2019-02-18 17:36 | Progress Note ---
Assessment and Plan - Patient Problems (1) Gestational diabetes Current Visit: Yes Status: Acute Plan to address problem: BG well controlled. (2) 27 weeks gestation of Current Visit: Yes Status: Acute (3) Chronic hypertension with superimposed preeclampsia Current Visit: Yes Status: Acute Plan to address problem: Comanaged with [facility]. s/p steroids s/p magnesium sulfate BP elevated yesterday 180s/70s. Will verify Hydralazine prn orders written. Current BP 140/70. Contine Labetolol and Norvasc. Continue inpatient management. Subjective - Subjective Principal diagnosis: SIUP at 27 0/7weeks with elevated BP and IUGR. Interval history: 29yo at 26 2/7wks being managed for CHTN S/I preeclampsia in second trimester and gestational diabetes. She reports good movement, no loss of fluid and no vaginal bleeding. She denies headache, RUQ pain or visual changes. Patient reports: movement normal, other, no new complaints, no loss of fluid, no vaginal bleeding, no contractions Objective - Vital Signs Vital Signs: Vital Signs - 12hr 02/18/19 02/18/19 02/18/19 06:25 07:25 08:25 Temperature Pulse Rate 71 80 75 Respiratory Rate Blood Pressure 150/78 157/78 153/85 02/18/19 02/18/19 02/18/19 08:47 09:25 09:50 Temperature 97.7 F Pulse Rate 82 83 Respiratory 14 Rate Blood Pressure 140/89 162/88 02/18/19 02/18/19 02/18/19 10:25 11:25 12:00 Temperature 97.9 F Pulse Rate 81 79 Respiratory Rate Blood Pressure 139/83 141/80 02/18/19 02/18/19 02/18/19 12:25 14:43 15:24 Temperature Pulse Rate 82 81 71 Respiratory Rate Blood Pressure 134/74 156/90 147/78 02/18/19 02/18/19 02/18/19 15:56 16:25 16:33 Temperature 97.2 F L 97.5 F L Pulse Rate 76 Respiratory 16 16 Rate Blood Pressure 161/95 02/18/19 17:24 Temperature Pulse Rate 77 Respiratory Rate Blood Pressure 149/85 - Labs Labs: Abnormal Labs 02/07/19 02/07/19 02/07/19 15:00 15:00 21:03 WBC 11.7 H RBC 3.33 L MCV 99 H MCH 34 H MCHC Sodium 136 L Creatinine 0.6 L POC Glucose 116 H Lactate Dehydrogenase 273 H Total Protein 6.1 L Albumin 3.5 L Ur Total Protein 24 Hr Urine Total Protein 02/08/19 02/08/19 02/08/19 10:40 13:51 14:46 WBC 11.4 H RBC 3.38 L MCV 102 H MCH 35 H MCHC Sodium Creatinine POC Glucose 107 H 112 H Lactate Dehydrogenase Total Protein Albumin Ur Total Protein 24 Hr Urine Total Protein 02/08/19 02/08/19 02/08/19 14:46 19:23 20:01 WBC RBC MCV MCH MCHC Sodium Creatinine POC Glucose 112 H Lactate Dehydrogenase 218 H Total Protein Albumin Ur Total Protein 24 Hr 286.00 H Urine Total Protein 13 H 02/09/19 02/09/19 02/09/19 06:16 10:10 15:49 WBC RBC MCV MCH MCHC Sodium Creatinine POC Glucose 147 H 155 H 119 H Lactate Dehydrogenase Total Protein Albumin Ur Total Protein 24 Hr Urine Total Protein 02/10/19 02/10/19 02/10/19 08:15 08:42 08:42 WBC 21.6 H RBC 3.36 L MCV 101 H MCH 34 H MCHC Sodium Creatinine 0.6 L POC Glucose 156 H Lactate Dehydrogenase 229 H Total Protein Albumin Ur Total Protein 24 Hr Urine Total Protein 02/10/19 02/10/19 02/11/19 12:22 20:15 06:35 WBC RBC MCV MCH MCHC Sodium Creatinine POC Glucose 124 H 108 H 110 H Lactate Dehydrogenase Total Protein Albumin Ur Total Protein 24 Hr Urine Total Protein 02/12/19 02/12/19 02/12/19 07:28 12:42 12:42 WBC 16.8 H RBC 3.26 L MCV 99 H MCH 35 H MCHC 35 H Sodium Creatinine POC Glucose 67 L Lactate Dehydrogenase 224 H Total Protein Albumin Ur Total Protein 24 Hr Urine Total Protein 02/13/19 02/14/19 02/15/19 16:46 21:08 10:25 WBC RBC MCV MCH MCHC Sodium Creatinine POC Glucose 66 L 125 H 115 H Lactate Dehydrogenase Total Protein Albumin Ur Total Protein 24 Hr Urine Total Protein 02/15/19 02/17/19 02/17/19 22:52 07:55 07:55 WBC 11.8 H RBC 3.56 L MCV 99 H MCH 35 H MCHC 35 H Sodium Creatinine POC Glucose 106 H Lactate Dehydrogenase 256 H Total Protein Albumin Ur Total Protein 24 Hr Urine Total Protein 02/17/19 02/18/19 11:41 11:57 WBC RBC MCV MCH MCHC Sodium Creatinine POC Glucose 117 H 67 L Lactate Dehydrogenase Total Protein Albumin Ur Total Protein 24 Hr Urine Total Protein Laboratory Results - last 24 hr 02/17/19 02/18/19 02/18/19 20:09 07:31 11:57 POC Glucose 100 81 67 L 02/18/19 15:07 POC Glucose 79
--- NOTE | 2019-02-18 20:19 | Consultation ---
Consult Note - Parent Education I met with parent(s) and discussed the following:: Need for NICU admission, Poss ible need for intubation and surfactant or other resp support, Temperature regulation, Head ultrasounds to evaluate IVH, Eye exams for ROP screening, Possible need for IV fluids/TPN and IV antibiotics, Possible need for umbilical lines, Importance of providing breast milk & encouraged pumping aft delivery, Donor breast milk if baby meets criteria after , Slow feeding advancement and monitoring of tolerance. NG/OG feeds, Need to monitor for jaundice, Data for survival & survival without significant co-morbidities Parent(s) demonstrated understanding of all the information:: Yes Additional Comment: Girl EFW 604grams. Mother lost a 24 week infant in 2004 at 2 months old to "a belly infection". Stressed importance of pumping/ and explained donor breast milk program. Mother nervous but seemed somewhat at ease at end of conversation. Assessment and Plan - Plan Plan: Agree with Mag & steroids Will attend delivery Please call NICU with questions
[2019-02-19] MEDS: LACTATED RINGERS 1,000 ML IV SCH (03:30)
--- NOTE | 2019-02-19 13:30 | Progress Note ---
Assessment and Plan - Patient Problems (1) 26 weeks gestation of Onset Date: 02/10/19 Current Visit: Yes Status: Acute (2) Chronic hypertension affecting Onset Date: 02/10/19 Current Visit: Yes Status: Acute (3) 27 weeks gestation of Onset Date: 02/19/19 Current Visit: Yes Status: Acute Plan to address problem: A: IUP @ 27 3/7 weeks Chronic hypertension - controlled GDM - stable Severe IUGR ( 0%) P: Continue on Labetalol 300 BID and amlodipine 5mg QD Continue present management as per [facility] Subjective - Subjective Date of service: 02/19/19 Principal diagnosis: SIUP at 27 3/7weeks with elevated BP and IUGR. Interval history: Patient is a 29 year old at 27 3/7weeks gestation who was admitted 12 days ago for elevated blood pressure. Her BPs in clinic were 150/100s. She denied any headache, visual changes or RUQ pain. She reported good movement. She was started on labetolol BID. Since her admission, her BPs have been stable in the 100-160/60-90's. She has a history of preeclampsia at 24 and 30 weeks with subsequent delivery via section x 2. Her 24-hr urine protein in 12/2018 was 467mg and 625mg one week ago. She is a gestational diabetic (GDMA1) - diet controlled. She is co-managed with [facility] for CHTN and Severe IUGR ( No growth over past 10 days - 0%) BPP 8/8. Cord doppler was Normal on 02/15/19. Today she denies headaches or blurred vision, feeling well and wants to go home. Patient reports: movement normal, other, no new complaints, no loss of fluid, no vaginal bleeding, no contractions Objective - Vital Signs Vital Signs: Vital Signs - 12hr 02/19/19 02/19/19 02/19/19 02:25 03:24 04:24 Temperature Pulse Rate 77 71 77 Respiratory Rate Blood Pressure 160/91 145/75 147/83 02/19/19 02/19/19 02/19/19 04:30 06:19 06:22 Temperature 97.7 F Pulse Rate 75 70 Respiratory Rate Blood Pressure 186/92 160/86 02/19/19 02/19/19 02/19/19 06:24 07:24 08:25 Temperature 97.3 F L Pulse Rate 72 78 73 Respiratory 18 Rate Blood Pressure 159/86 144/81 161/78 02/19/19 02/19/19 02/19/19 10:25 12:14 12:16 Temperature 98.4 F Pulse Rate 77 81 Respiratory 18 Rate Blood Pressure 135/80 135/70 02/19/19 02/19/19 12:25 13:25 Temperature Pulse Rate 90 105 H Respiratory Rate Blood Pressure 134/76 117/64 - Exam Abdomen: Present: normal appearance, soft Uterus: Present: normal Uterine Contraction Monitor Mode: External Uterine Contraction Pattern: Absent - Labs Labs: Abnormal Labs 02/07/19 02/07/19 02/07/19 15:00 15:00 21:03 WBC 11.7 H RBC 3.33 L MCV 99 H MCH 34 H MCHC Sodium 136 L Creatinine 0.6 L POC Glucose 116 H Lactate Dehydrogenase 273 H Total Protein 6.1 L Albumin 3.5 L Ur Total Protein 24 Hr Urine Total Protein 02/08/19 02/08/19 02/08/19 10:40 13:51 14:46 WBC 11.4 H RBC 3.38 L MCV 102 H MCH 35 H MCHC Sodium Creatinine POC Glucose 107 H 112 H Lactate Dehydrogenase Total Protein Albumin Ur Total Protein 24 Hr Urine Total Protein 02/08/19 02/08/19 02/08/19 14:46 19:23 20:01 WBC RBC MCV MCH MCHC Sodium Creatinine POC Glucose 112 H Lactate Dehydrogenase 218 H Total Protein Albumin Ur Total Protein 24 Hr 286.00 H Urine Total Protein 13 H 02/09/19 02/09/19 02/09/19 06:16 10:10 15:49 WBC RBC MCV MCH MCHC Sodium Creatinine POC Glucose 147 H 155 H 119 H Lactate Dehydrogenase Total Protein Albumin Ur Total Protein 24 Hr Urine Total Protein 02/10/19 02/10/19 02/10/19 08:15 08:42 08:42 WBC 21.6 H RBC 3.36 L MCV 101 H MCH 34 H MCHC Sodium Creatinine 0.6 L POC Glucose 156 H Lactate Dehydrogenase 229 H Total Protein Albumin Ur Total Protein 24 Hr Urine Total Protein 02/10/19 02/10/19 02/11/19 12:22 20:15 06:35 WBC RBC MCV MCH MCHC Sodium Creatinine POC Glucose 124 H 108 H 110 H Lactate Dehydrogenase Total Protein Albumin Ur Total Protein 24 Hr Urine Total Protein 02/12/19 02/12/19 02/12/19 07:28 12:42 12:42 WBC 16.8 H RBC 3.26 L MCV 99 H MCH 35 H MCHC 35 H Sodium Creatinine POC Glucose 67 L Lactate Dehydrogenase 224 H Total Protein Albumin Ur Total Protein 24 Hr Urine Total Protein 02/13/19 02/14/19 02/15/19 16:46 21:08 10:25 WBC RBC MCV MCH MCHC Sodium Creatinine POC Glucose 66 L 125 H 115 H Lactate Dehydrogenase Total Protein Albumin Ur Total Protein 24 Hr Urine Total Protein 02/15/19 02/17/19 02/17/19 22:52 07:55 07:55 WBC 11.8 H RBC 3.56 L MCV 99 H MCH 35 H MCHC 35 H Sodium Creatinine POC Glucose 106 H Lactate Dehydrogenase 256 H Total Protein Albumin Ur Total Protein 24 Hr Urine Total Protein 02/17/19 02/18/19 02/19/19 11:41 11:57 06:34 WBC RBC MCV MCH MCHC Sodium Creatinine POC Glucose 117 H 67 L 64 L Lactate Dehydrogenase Total Protein Albumin Ur Total Protein 24 Hr Urine Total Protein Laboratory Results - last 24 hr 02/18/19 02/18/19 02/19/19 15:07 19:16 06:34 POC Glucose 79 104 64 L 02/19/19 12:24 POC Glucose 77
--- NOTE | 2019-02-19 15:18 | Progress Note ---
Assessment and Plan ASSESSMENT IUP at 27 weeks 3 day gestation. Chronic hypertension; 24 hour urine Protein 286 Gestational diabetes no current medications.; diet controlled Morbid obesity. Improved blood pressure; on current regimen Improved blood sugar values Intrauterine growth restriction history of preeclampsia. Proteinuria: 286 mg on 02/12/19 Maintain current Labetalol RECOMMENDATIONS 1. No changes or insulin coverage at this time for gestational diabetes. 2. Continue Labetalol as prescribed 3. BPP Twice per weekly 4. Delivery for signs or symptoms of Severe Preeclampsia or compromise 5. Patient is NOT a candidate for discharge at this time based on previous presentation and elevated proteinuria. Contact [facility] if there is any question as to whether this patient is a candidate for delivery. The indications for discontinuation of expectant management and DELIVERY in this patient would include ANY of the following: heart rate abnormalities, (ie, bradycardia , repetitive late or variable decelerations) Significant new onset proteinuria (see above) Thrombocytopenia Hemolysis, Elevation in liver function tests Blood pressure that is very labile or poorly controlled with reasonable doses of intravenous labetalol Symptoms of severe pre-eclampsia epigastric discomfort, headache, dizziness, blurred vision, RUQ pain, seizure. Standard obstetrical indications 7. We will follow this patient. Thank you for allowing us to participate in the care of this patient. We look forward to the opportunity to assist in her continued management. If you have any questions, please contact our oncall physician Dr. Cox. Subjective - Subjective Date of service: 02/19/19 Principal diagnosis: SIUP at 27 3/7weeks with elevated BP and IUGR. Patient reports: movement normal, other, no new complaints, no loss of fluid, no vaginal bleeding, no contractions Objective - Vital Signs Vital Signs: Vital Signs - 12hr 02/19/19 02/19/19 02/19/19 03:24 04:24 04:30 Temperature 97.7 F Pulse Rate 71 77 Respiratory Rate Blood Pressure 145/75 147/83 02/19/19 02/19/19 02/19/19 06:19 06:22 06:24 Temperature Pulse Rate 75 70 72 Respiratory Rate Blood Pressure 186/92 160/86 159/86 02/19/19 02/19/19 02/19/19 07:24 08:25 10:25 Temperature 97.3 F L Pulse Rate 78 73 77 Respiratory 18 Rate Blood Pressure 144/81 161/78 135/80 02/19/19 02/19/19 02/19/19 12:14 12:16 12:25 Temperature 98.4 F Pulse Rate 81 90 Respiratory 18 Rate Blood Pressure 135/70 134/76 02/19/19 02/19/19 13:25 14:26 Temperature Pulse Rate 105 H 86 Respiratory Rate Blood Pressure 117/64 152/87 - Exam Cardiovascular: Regular rate Lungs: Normal air movement Abdomen: Present: normal appearance, other (gravid) - Labs Labs: Abnormal Labs 02/07/19 02/07/19 02/07/19 15:00 15:00 21:03 WBC 11.7 H RBC 3.33 L MCV 99 H MCH 34 H MCHC Sodium 136 L Creatinine 0.6 L POC Glucose 116 H Lactate Dehydrogenase 273 H Total Protein 6.1 L Albumin 3.5 L Ur Total Protein 24 Hr Urine Total Protein 02/08/19 02/08/19 02/08/19 10:40 13:51 14:46 WBC 11.4 H RBC 3.38 L MCV 102 H MCH 35 H MCHC Sodium Creatinine POC Glucose 107 H 112 H Lactate Dehydrogenase Total Protein Albumin Ur Total Protein 24 Hr Urine Total Protein 02/08/19 02/08/19 02/08/19 14:46 19:23 20:01 WBC RBC MCV MCH MCHC Sodium Creatinine POC Glucose 112 H Lactate Dehydrogenase 218 H Total Protein Albumin Ur Total Protein 24 Hr 286.00 H Urine Total Protein 13 H 02/09/19 02/09/19 02/09/19 06:16 10:10 15:49 WBC RBC MCV MCH MCHC Sodium Creatinine POC Glucose 147 H 155 H 119 H Lactate Dehydrogenase Total Protein Albumin Ur Total Protein 24 Hr Urine Total Protein 02/10/19 02/10/19 02/10/19 08:15 08:42 08:42 WBC 21.6 H RBC 3.36 L MCV 101 H MCH 34 H MCHC Sodium Creatinine 0.6 L POC Glucose 156 H Lactate Dehydrogenase 229 H Total Protein Albumin Ur Total Protein 24 Hr Urine Total Protein 02/10/19 02/10/19 02/11/19 12:22 20:15 06:35 WBC RBC MCV MCH MCHC Sodium Creatinine POC Glucose 124 H 108 H 110 H Lactate Dehydrogenase Total Protein Albumin Ur Total Protein 24 Hr Urine Total Protein 02/12/19 02/12/19 02/12/19 07:28 12:42 12:42 WBC 16.8 H RBC 3.26 L MCV 99 H MCH 35 H MCHC 35 H Sodium Creatinine POC Glucose 67 L Lactate Dehydrogenase 224 H Total Protein Albumin Ur Total Protein 24 Hr Urine Total Protein 02/13/19 02/14/19 02/15/19 16:46 21:08 10:25 WBC RBC MCV MCH MCHC Sodium Creatinine POC Glucose 66 L 125 H 115 H Lactate Dehydrogenase Total Protein Albumin Ur Total Protein 24 Hr Urine Total Protein 02/15/19 02/17/19 02/17/19 22:52 07:55 07:55 WBC 11.8 H RBC 3.56 L MCV 99 H MCH 35 H MCHC 35 H Sodium Creatinine POC Glucose 106 H Lactate Dehydrogenase 256 H Total Protein Albumin Ur Total Protein 24 Hr Urine Total Protein 02/17/19 02/18/19 02/19/19 11:41 11:57 06:34 WBC RBC MCV MCH MCHC Sodium Creatinine POC Glucose 117 H 67 L 64 L Lactate Dehydrogenase Total Protein Albumin Ur Total Protein 24 Hr Urine Total Protein 02/19/19 15:01 WBC RBC MCV MCH MCHC Sodium Creatinine POC Glucose 109 H Lactate Dehydrogenase Total Protein Albumin Ur Total Protein 24 Hr Urine Total Protein Laboratory Results - last 24 hr 02/18/19 02/19/19 02/19/19 19:16 06:34 12:24 POC Glucose 104 64 L 77 02/19/19 15:01 POC Glucose 109 H
[2019-02-19] MEDS: NORMODYNE PO SCH (22:16)
[2019-02-20 06:58] LABS: Hematocrit 34.9 % (30.3-42.9); Hemoglobin 12.2 gm/dl (10.1-14.3); Mean Corpuscular HGB Conc 35 % (30-34); Mean Corpuscular Volume 99 fl (79-97); Platelet Count 201 K/mm3 (140-440); Red Blood Count 3.53 M/mm3 (3.65-5.03); Red Cell Distribution Width 14.7 % (13.2-15.2)
[2019-02-20 07:12] LABS: Alanine Aminotransferase 19 units/L (7-56)
--- NOTE | 2019-02-20 09:21 | Ultrasound Report ---
ULTRASOUND OB VELOCIMETRY UMBILICAL ARTERY HISTORY: Preeclampsia, intrauterine growth restriction. TECHNIQUE: Transabdominal ultrasound. Spectral Doppler interrogation was performed on 3 segments of the umbilical cord. FINDINGS: heart rate measures 138 beats per minute. The spectral waveforms are normal and persistent. No evidence for loss or reversal of end-diastolic flow. The resistive index average measures 0.81. The systolic/diastolic ratio average measures 5.27. IMPRESSION: Elevated resistive indices.
--- NOTE | 2019-02-20 09:21 | Ultrasound Report ---
ULTRASOUND OB LIMITED History: Preeclampsia Technique: Transabdominal ultrasound with Doppler interrogation. Gestation: Single Position: Cephalic Amniotic Fluid: Decreased JESENIA = 6.9 cm Heart Rate: 138 BPM
[2019-02-20] MEDS: NORMODYNE PO SCH (09:30)
[2019-02-20] MEDS: NORVASC PO SCH (09:31)
[2019-02-20] MEDS: PRENATAL VITAMIN PO SCH ×2 (09:37→09:38)
--- NOTE | 2019-02-20 10:34 | Progress Note ---
Assessment and Plan - Patient Problems (1) Gestational diabetes Current Visit: Yes Status: Acute (2) 27 weeks gestation of Onset Date: 02/19/19 Current Visit: Yes Status: Acute (3) Chronic hypertension with superimposed preeclampsia Current Visit: Yes Status: Acute Plan to address problem: Comanaged with [facility]. s/p steroids s/p magnesium sulfate BP elevated yesterday 180s/70s. Will verify Hydralazine prn orders written. Current BP 140/70. Contine Labetolol and Norvasc. Spoke with Dr. Ferreira. Due to signs of worsening status plan to proceed to delivery with repeat section. Subjective - Subjective Principal diagnosis: SIUP at 27 3/7weeks with elevated BP and IUGR. Interval history: 29yo at 26 2/7wks being managed for CHTN S/I preeclampsia in second trimester and gestational diabetes. She reports good movement, no loss of fluid and no vaginal bleeding. She denies headache, RUQ pain or visual changes. Patient reports: movement normal, other, no new complaints, no loss of fluid, no vaginal bleeding, no contractions Objective - Vital Signs Vital Signs: Vital Signs - 12hr 02/19/19 02/20/19 02/20/19 23:26 00:26 01:25 Temperature Pulse Rate 81 79 88 Respiratory Rate Blood Pressure 144/80 166/93 137/80 02/20/19 02/20/19 02/20/19 02:25 03:25 04:24 Temperature Pulse Rate 78 83 76 Respiratory Rate Blood Pressure 143/89 158/81 134/81 02/20/19 02/20/19 02/20/19 05:25 06:25 07:26 Temperature Pulse Rate 73 82 74 Respiratory Rate Blood Pressure 166/80 166/94 152/75 02/20/19 02/20/19 02/20/19 07:30 08:24 09:09 Temperature 97.2 F L Pulse Rate 75 77 Respiratory 18 Rate Blood Pressure 149/89 168/103 02/20/19 02/20/19 02/20/19 09:26 09:30 10:25 Temperature Pulse Rate 70 70 72 Respiratory Rate Blood Pressure 155/83 155/83 158/86 - Labs Labs: Abnormal Labs 02/07/19 02/07/19 02/07/19 15:00 15:00 21:03 WBC 11.7 H RBC 3.33 L MCV 99 H MCH 34 H MCHC Sodium 136 L Creatinine 0.6 L POC Glucose 116 H Lactate Dehydrogenase 273 H Total Protein 6.1 L Albumin 3.5 L Ur Total Protein 24 Hr Urine Total Protein 02/08/19 02/08/19 02/08/19 10:40 13:51 14:46 WBC 11.4 H RBC 3.38 L MCV 102 H MCH 35 H MCHC Sodium Creatinine POC Glucose 107 H 112 H Lactate Dehydrogenase Total Protein Albumin Ur Total Protein 24 Hr Urine Total Protein 02/08/19 02/08/19 02/08/19 14:46 19:23 20:01 WBC RBC MCV MCH MCHC Sodium Creatinine POC Glucose 112 H Lactate Dehydrogenase 218 H Total Protein Albumin Ur Total Protein 24 Hr 286.00 H Urine Total Protein 13 H 02/09/19 02/09/19 02/09/19 06:16 10:10 15:49 WBC RBC MCV MCH MCHC Sodium Creatinine POC Glucose 147 H 155 H 119 H Lactate Dehydrogenase Total Protein Albumin Ur Total Protein 24 Hr Urine Total Protein 02/10/19 02/10/19 02/10/19 08:15 08:42 08:42 WBC 21.6 H RBC 3.36 L MCV 101 H MCH 34 H MCHC Sodium Creatinine 0.6 L POC Glucose 156 H Lactate Dehydrogenase 229 H Total Protein Albumin Ur Total Protein 24 Hr Urine Total Protein 02/10/19 02/10/19 02/11/19 12:22 20:15 06:35 WBC RBC MCV MCH MCHC Sodium Creatinine POC Glucose 124 H 108 H 110 H Lactate Dehydrogenase Total Protein Albumin Ur Total Protein 24 Hr Urine Total Protein 02/12/19 02/12/19 02/12/19 07:28 12:42 12:42 WBC 16.8 H RBC 3.26 L MCV 99 H MCH 35 H MCHC 35 H Sodium Creatinine POC Glucose 67 L Lactate Dehydrogenase 224 H Total Protein Albumin Ur Total Protein 24 Hr Urine Total Protein 02/13/19 02/14/19 02/15/19 16:46 21:08 10:25 WBC RBC MCV MCH MCHC Sodium Creatinine POC Glucose 66 L 125 H 115 H Lactate Dehydrogenase Total Protein Albumin Ur Total Protein 24 Hr Urine Total Protein 02/15/19 02/17/19 02/17/19 22:52 07:55 07:55 WBC 11.8 H RBC 3.56 L MCV 99 H MCH 35 H MCHC 35 H Sodium Creatinine POC Glucose 106 H Lactate Dehydrogenase 256 H Total Protein Albumin Ur Total Protein 24 Hr Urine Total Protein 02/17/19 02/18/19 02/19/19 11:41 11:57 06:34 WBC RBC MCV MCH MCHC Sodium Creatinine POC Glucose 117 H 67 L 64 L Lactate Dehydrogenase Total Protein Albumin Ur Total Protein 24 Hr Urine Total Protein 02/19/19 02/20/19 02/20/19 15:01 06:28 06:28 WBC 11.4 H RBC 3.53 L MCV 99 H MCH 35 H MCHC 35 H Sodium Creatinine POC Glucose 109 H Lactate Dehydrogenase 185 H Total Protein Albumin Ur Total Protein 24 Hr Urine Total Protein Laboratory Results - last 24 hr 02/19/19 02/19/19 02/19/19 12:24 15:01 23:25 WBC RBC Hgb Hct MCV MCH MCHC RDW Plt Count Creatinine Estimated GFR POC Glucose 77 109 H 99 AST ALT Lactate Dehydrogenase 02/20/19 02/20/19 06:28 06:28 WBC 11.4 H RBC 3.53 L Hgb 12.2 Hct 34.9 MCV 99 H MCH 35 H MCHC 35 H RDW 14.7 Plt Count 201 Creatinine 0.7 Estimated GFR > 60 POC Glucose AST 18 ALT 19 Lactate Dehydrogenase 185 H
--- NOTE | 2019-02-20 11:17 | Event Note ---
I resumed care of patient today. Chart review. 1. BPs 140-180/80-100s. I was told by AM nurse that Labetolol dose was found on patient's night stand therefore dose was not given until this morning. This may be the reason for transient/labile blood pressure elevations. PATIENT NEEDS MEDS SCHEDULED. Call MD for all elevations >160/110 2. S/D ratio trending up 3-->4--> now 5.24 3. JESENIA 6.9 Now low normal JESENIA in second trimester, increasing S/D ratio and labile blood pressures difficult to maintain. Called [facility]'s answering service to discuss concerns and no answer. Have reached out to multiple [facility] MD's and awaiting return call for recommendation on further management with worsening condition, concerns for impending compromise.
--- NOTE | 2019-02-20 13:38 | Progress Note ---
Assessment and Plan A) - Ramirez IUP at 27.3 weeks S/P BMZ for FLM S/P MgSo4 for Neuroprotection S/P NICU consult - CHTN with S/I Preeclampsia NO PROFESSOR OF PUBLIC ADMINISTRATION features Proteinuria Diag 11/01/18 at 469 and repeated on 02/08/19 at 286 Elevated BP ( labile ) under her current medical therapy - H/O Preeclampsia with Past 2 Preg at 24 and 30 weeks - Prior C/S X 2 - Severe IUGR with No prior growth over past 10 days EFW at 0% ( 02/09/19 at EFW 604 grams - mean would be 913 grams) 02/20/19 Reassuring BPP 02/20/19 Abnormal umbilical doppler ELEVATED at 5.27 ( Doppler previously Elevated Cord Dopplers on 02/12/19 - S/S at 5.22) Borderline Oligo with JESENIA of 6.9 cm Minimal variability noted on NST Noted in [facility] US Placenta with a cyst - GDM adequate BS control under no medical therapy P) Upon review of Doppler assessment , NST tracing , borderline Oligo, and BP assessment Dr Cox is recommending delivery Dr. Cox call and paged Primary OB long term care administrator-Dr Zully Yancey Notify NICU team Address BP and treat as indicated Obtain cord gas Send placenta to pathology Subjective - Subjective Principal diagnosis: SIUP at 27 3/7weeks with elevated BP and IUGR. Interval history: 29 y/o ROSA 05/18/19 now27.3 weeks sent in from OB's office with elevated BP's sys in 180's per OB BP during consult 130-150/80-90 Denies ELIAS's Scotoma or RUQ Pain History of Severe Preeclampsia X 2 with prior pregnancies at 24 and 30 weeks ---- Diag of GDM 1 Hour GTT at 230 per OB BS Well Controlled on diet ------ Had 24 Hour Urine Prot 469 on 11/01/18 Repeat 24 Hour Protein on 02/08/19 at 286 Patient reports: movement normal, other (Report AFM and reports NO [employer]ESS[employer] PUBLIC [employer]MINISTRATION features . ), no new complaints, no loss of fluid, no vaginal bleeding, no contractions Objective - Vital Signs Vital Signs: Vital Signs - 12hr 02/20/19 02/20/19 02/20/19 02:25 03:25 04:24 Temperature Pulse Rate 78 83 76 Respiratory Rate Blood Pressure 143/89 158/81 134/81 02/20/19 02/20/19 02/20/19 05:25 06:25 07:26 Temperature Pulse Rate 73 82 74 Respiratory Rate Blood Pressure 166/80 166/94 152/75 02/20/19 02/20/19 02/20/19 07:30 08:24 09:09 Temperature 97.2 F L Pulse Rate 75 77 Respiratory 18 Rate Blood Pressure 149/89 168/103 02/20/19 02/20/19 02/20/19 09:26 09:30 10:25 Temperature Pulse Rate 70 70 72 Respiratory Rate Blood Pressure 155/83 155/83 158/86 02/20/19 02/20/19 02/20/19 11:04 11:25 12:24 Temperature Pulse Rate 75 73 80 Respiratory Rate Blood Pressure 153/81 135/76 143/81 02/20/19 02/20/19 12:32 13:25 Temperature 97.5 F L Pulse Rate 93 H Respiratory 18 Rate Blood Pressure 156/86 - Exam Breasts: deferred Cardiovascular: Regular rate Lungs: Normal air movement Abdomen: Present: other (gravid ). Absent: tenderness, guarding Uterus: Absent: tenderness FHR: other (mininal variability with NO deceleration noted ) Uterine Contraction Pattern: Absent Extremities: normal - Labs Labs: Abnormal Labs 02/07/19 02/07/19 02/07/19 15:00 15:00 21:03 WBC 11.7 H RBC 3.33 L MCV 99 H MCH 34 H MCHC Sodium 136 L Creatinine 0.6 L POC Glucose 116 H Lactate Dehydrogenase 273 H Total Protein 6.1 L Albumin 3.5 L Ur Total Protein 24 Hr Urine Total Protein 02/08/19 02/08/19 02/08/19 10:40 13:51 14:46 WBC 11.4 H RBC 3.38 L MCV 102 H MCH 35 H MCHC Sodium Creatinine POC Glucose 107 H 112 H Lactate Dehydrogenase Total Protein Albumin Ur Total Protein 24 Hr Urine Total Protein 05/25/19 05/25/19 05/25/19 14:46 19:23 20:01 WBC RBC MCV MCH MCHC Sodium Creatinine POC Glucose 112 H Lactate Dehydrogenase 218 H Total Protein Albumin Ur Total Protein 24 Hr 286.00 H Urine Total Protein 13 H 02/09/19 02/09/19 02/09/19 06:16 10:10 15:49 WBC RBC MCV MCH MCHC Sodium Creatinine POC Glucose 147 H 155 H 119 H Lactate Dehydrogenase Total Protein Albumin Ur Total Protein 24 Hr Urine Total Protein 02/10/19 02/10/19 02/10/19 08:15 08:42 08:42 WBC 21.6 H RBC 3.36 L MCV 101 H MCH 34 H MCHC Sodium Creatinine 0.6 L POC Glucose 156 H Lactate Dehydrogenase 229 H Total Protein Albumin Ur Total Protein 24 Hr Urine Total Protein 02/10/19 02/10/19 02/11/19 12:22 20:15 06:35 WBC RBC MCV MCH MCHC Sodium Creatinine POC Glucose 124 H 108 H 110 H Lactate Dehydrogenase Total Protein Albumin Ur Total Protein 24 Hr Urine Total Protein 02/12/19 02/12/19 02/12/19 07:28 12:42 12:42 WBC 16.8 H RBC 3.26 L MCV 99 H MCH 35 H MCHC 35 H Sodium Creatinine POC Glucose 67 L Lactate Dehydrogenase 224 H Total Protein Albumin Ur Total Protein 24 Hr Urine Total Protein 02/13/19 02/14/19 02/15/19 16:46 21:08 10:25 WBC RBC MCV MCH MCHC Sodium Creatinine POC Glucose 66 L 125 H 115 H Lactate Dehydrogenase Total Protein Albumin Ur Total Protein 24 Hr Urine Total Protein 02/15/19 02/17/19 02/17/19 22:52 07:55 07:55 WBC 11.8 H RBC 3.56 L MCV 99 H MCH 35 H MCHC 35 H Sodium Creatinine POC Glucose 106 H Lactate Dehydrogenase 256 H Total Protein Albumin Ur Total Protein 24 Hr Urine Total Protein 02/17/19 02/18/19 02/19/19 11:41 11:57 06:34 WBC RBC MCV MCH MCHC Sodium Creatinine POC Glucose 117 H 67 L 64 L Lactate Dehydrogenase Total Protein Albumin Ur Total Protein 24 Hr Urine Total Protein 02/19/19 02/20/19 02/20/19 15:01 06:28 06:28 WBC 11.4 H RBC 3.53 L MCV 99 H MCH 35 H MCHC 35 H Sodium Creatinine POC Glucose 109 H Lactate Dehydrogenase 185 H Total Protein Albumin Ur Total Protein 24 Hr Urine Total Protein Laboratory Results - last 24 hr 02/19/19 02/19/19 02/20/19 15:01 23:25 06:28 WBC 11.4 H RBC 3.53 L Hgb 12.2 Hct 34.9 MCV 99 H MCH 35 H MCHC 35 H RDW 14.7 Plt Count 201 Creatinine Estimated GFR POC Glucose 109 H 99 AST ALT Lactate Dehydrogenase 02/20/19 02/20/19 06:28 11:31 WBC RBC Hgb Hct MCV MCH MCHC RDW Plt Count Creatinine 0.7 Estimated GFR > 60 POC Glucose 89 AST 18 ALT 19 Lactate Dehydrogenase 185 H - Results US- obstetric: report reviewed (SEE [facility] FOR FULL REPORT )
[2019-02-20] MEDS ORDERED: BICITRA PO ONE (17:19)
[2019-02-20] MEDS ORDERED: REGLAN IV ONE (17:19)
[2019-02-20] MEDS ORDERED: GENTAMICIN 80 MG in NACL 0.9% 100 ML IV ONE (17:19)
[2019-02-20] MEDS ORDERED: PEPCID IV ONE ×2 (17:19→19:29)
[2019-02-20] MEDS ORDERED: APRESOLINE IV ONE ×2 (17:50→20:56)
[2019-02-20] MEDS ORDERED: APRESOLINE ONE ×2 (17:51→20:55)
[2019-02-20] MEDS: LACTATED RINGERS 1,000 ML IV SCH (17:58)
[2019-02-20] MEDS ORDERED: CLEOCIN 900 MG/50 mL 900 MG/50 ML BAG IV NR (18:00)
[2019-02-20] MEDS ORDERED: PITOCin/NS 20 UNIT/1000ML DRIP 20 UNITS/1,000 ML BAG IV SCH (18:00)
[2019-02-20] MEDS ORDERED: GENTAMICIN/NS 120MG/100ML 120 MG/100 ML BAG IV SCH (18:00)
[2019-02-20] MEDS ORDERED: LACTATED RINGERS 1,000 ML IV SCH (18:00)
[2019-02-20] MEDS ORDERED: REGLAN ONE (19:29)
[2019-02-20] MEDS ORDERED: BICITRA ONE (19:29)
[2019-02-20] MEDS ORDERED: SUBLIMAZE ONE (21:09)
[2019-02-20] MEDS ORDERED: WATER FOR IRRIG STERILE IR ONE (21:30)
[2019-02-20] MEDS ORDERED: NACL 0.9% IR ONE (21:30)
[2019-02-20] MEDS ORDERED: VERSED ONE ×2 (22:25)
[2019-02-20] MEDS ORDERED: HEMABATE IM ONE ×2 (23:08)
[2019-02-20] MEDS ORDERED: DILAUDID ONE (23:58)
[2019-02-21] MEDS ORDERED: HEMABATE IM ONE (00:05)
[2019-02-21] MEDS ORDERED: NARCAN 0.4 MG/1 ML IV PRN ×2 (00:20→01:09)
[2019-02-21] MEDS ORDERED: PHENERGAN PR PRN (00:20)
[2019-02-21] MEDS ORDERED: PHENERGAN PO PRN (00:20)
[2019-02-21] MEDS ORDERED: ZOFRAN IV PRN (00:20)
[2019-02-21] MEDS ORDERED: DILAUDID IV PRN (00:20)
--- NOTE | 2019-02-21 00:23 | Anesthesia Day of Surgery ---
Anesthesia Day of Surgery - Day of Surgery Patient Examined: Yes Patient H&P Reviewed: Yes Patient is NPO: Yes Beta Blockers: Yes Cardiac Clearance: No Pulmonary Clearance: No Shaheed's Test: N/A
--- NOTE | 2019-02-21 00:23 | Anesthesia Consultation ---
Anesthesia Consult and Med Hx Date of service: 02/21/19 - Airway Anesthetic Teeth Evaluation: Good ROM Head & Neck: Adequate Mental/Hyoid Distance: Adequate Mallampati Class: Class II Intubation Access Assessment: Probably Good - Pulmonary Exam CTA: Yes - Pre-Operative Health Status ASA Pre-Surgery Classification: ASA3 Proposed Anesthetic Plan: Spinal - Pulmonary Hx Smoking: No Hx Asthma: No Hx Respiratory Symptoms: No SOB: No COPD: No Home Oxygen Therapy: No Hx Pneumonia: No Hx Sleep Apnea: No (snores) - Cardiovascular System Hx Hypertension: Yes Hx Coronary Artery Disease: No Hx Heart Attack/AMI: No Hx Angina: No Hx Percutaneous Transluminal Coronary Angioplasty (PTCA): No Hx Cardia Arrhythmia: No Hx Pacemaker: No Hx Internal Defibrillator: No Hx Valvular Heart Disease: No Hx Heart Murmur: No Hx Peripheral Vascular Disease: No - Central Nervous System Hx Neuromuscular Disorder: No Hx Seizures: No CVA: No Hx Back Pain: Yes Hx Psychiatric Problems: No - Gastrointestinal Hx Gastroesophageal Reflux Disease: Yes - Endocrine Hx Renal Disease: No Hx End Stage Renal Disease: No Hx Cirrhosis: No Hx Liver Disease: No Hx Insulin Dependent Diabetes: No Hx Non-Insulin Dependent Diabetes: Yes (gestational DM) Hx Thyroid Disease: No Hx Hypothyroidism: No Hx Hyperthyroidism: No - Hematic Hx Anemia: No Hx Sickle Cell Disease: No - Other Systems Hx Alcohol Use: No Hx Substance Use: No Hx Cancer: No Hx Obesity: Yes
--- NOTE | 2019-02-21 00:24 | Post Anesthesia Evaluation ---
- Post Anesthesia Evaluation Patient Participated: Yes Airway Patent: Yes Stable Respiratory Function: Yes Nausea/Vomiting: No Temp > 96.8F: Yes Pain Manageable: Yes Adequeate Hydration: Yes Anesthesia Complications: No Block Receding Appropriately: Yes Patient on Ventilator: No
[2019-02-21] MEDS: DILAUDID IV PRN ×4 (00:40→01:19)
[2019-02-21] MEDS: NORMODYNE PO SCH ×3 (00:40→21:41)
[2019-02-21] MEDS ORDERED: SODIUM CHLORIDE FLUSH SYRINGE 10 ML IV PRN ×2 (01:00→02:00)
--- NOTE | 2019-02-21 01:00 | Operative Report ---
Operative Report Operative Report: DATE OF OPERATION: 02/21/2019 PREOP Diagnosis 1. 27 4/7 wks gestation 2. Uncontrolled chronic hypertension superimposed preeclampsia with severe features 3. Intrauterine growth restriction 4. Low JESENIA 6.9 5. Elevated uterine artery dopplers 6. Previous CLASSICAL section 7. History of preeclampsia 8. Mapresentation Postop Diagnosis 1. 27 4/7 wks gestation 2. Uncontrolled chronic hypertension superimposed preeclampsia with severe features 3. Intrauterine growth restriction 4. Low JESENIA 6.9 5. Elevated uterine artery dopplers 6. Previous CLASSICAL section 7. History of preeclampsia 8. Mapresentation Procedure: Repeat classical section Findings 1. Viable female infant in the breech position, weighing 680g 1lb 8 oz, intubated to NICU 2. Dense pelvic adhesions 3. Extensive bowel manipulation following valsalva of small intestine extracorporeal Surgeon 1. Marilyn Yancey MD Anesthesia: 1.General I/O: EBL: 500ml UOP: 300ml, clear urine IVF 900ml LR Specimens removed: 1. Placenta - Complications: none Disposition: Patient taken to recovery room in stable condition INDICATIONS: The patient is a 29yo at 27 4/7weeks that was being observed for chronic hypertension superimposed preeclampsia with severe features and was noted to have compromise on doppler studies. growth was noted to cease for 10 days. After collaboration with GRICEL Ulloa the recommendation was made to delivery patient for nonreassurring status. The risks including but not limited to bleeding, infections, injury to surrounding organs, potential injury to mother/infant, possible were discussed. All questions were answered and informed consent signed. PROCEDURE: The patient was taken to the OR in stable condition. Adequate anesthesia was achieved with spinal anesthesia. A evangelista catheter was placed. She wore SCDs for DVT prophylaxis. And received Clindamycin and Gentamicin for infection prophylaxis. The patient was prepped and draped in the usual fashion and an additional time out was done. A Pfannestiel incision was made in the skin The fascia was incised and the incision extended laterally. The superior and aspect of the rectus muscle was dissected off of the fascia. The fascia inferior to the incision was densely scared to rectus an bladder. Entry into the peritoneum was achieved. Due to dense pelvic adhesions the decision was made to extend the rectus muscle laterally to aide in visualization. A classical, horizontal uterine incision was made in the uterus and extended. The lower extremities were delivered by sweeping the leg across the torso and out the body. The same technique was implored to deliver the right extremity. The torso was elevated out of the abdomen and the left upper extremity was delivered by sweeping down and out the uterus. The head was delivered spontaneously. The cord was cut and the infant was then handed over to the awaiting NICU staff. The uterus was repaired in multiple figure of 8 and continuous sutures in multiple layers. Interceed was placed between the uterine and rectus muscle planes. The fascia was closed with 0 Vicryl. Subcutaneous layer reapproximated with 2-0 Vicryl. Skin closed with 4-0 Vicryl. The patient tolerated the procedure well. All counts were correct x 3. Urine was noted to be clear at close of case. I was present and scrubbed for the entire procedure. The patient was taken to the recovery room in stable condition.
[2019-02-21] MEDS ORDERED: TUCKS PAD TP PRN (01:09)
[2019-02-21] MEDS ORDERED: LANSINOH TP PRN (01:09)
[2019-02-21] MEDS ORDERED: MYLICON PO PRN (01:11)
[2019-02-21] MEDS: MAGNESIUM SULFATE 40GM/1000ML 40 GM/1,000 ML BAG IV ONE ×2 (01:14→02:59)
[2019-02-21] MEDS: MAGNESIUM SULFATE 40GM/1000ML 40 GM/1,000 ML BAG IV SCH ×2 (01:14→21:35)
[2019-02-21] MEDS ORDERED: PITOCin/NS 20 UNIT/1000ML DRIP 20 UNITS/1,000 ML BAG IV SCH (02:00)
[2019-02-21] MEDS: D5LR 1,000 ML IV SCH ×2 (04:34→16:04)
[2019-02-21] MEDS: MORPHINE IV PRN ×2 (05:40→12:27)
[2019-02-21 06:55] LABS: Hemoglobin 10.3 gm/dl (10.1-14.3)
[2019-02-21 10:52] LABS: Hematocrit 31.1 % (30.3-42.9); Hemoglobin 10.7 gm/dl (10.1-14.3)
--- NOTE | 2019-02-21 16:52 | Progress Note ---
Assessment and Plan - Patient Problems (1) Gestational diabetes Current Visit: Yes Status: Acute (2) 27 weeks gestation of Onset Date: 02/19/19 Current Visit: Yes Status: Acute (3) Chronic hypertension with superimposed preeclampsia Current Visit: Yes Status: Acute Subjective - Subjective Principal diagnosis: SIUP at 27 3/7weeks with elevated BP and IUGR. Interval history: 29yo at 26 2/7wks being managed for CHTN S/I preeclampsia in second trimester and gestational diabetes. Now day of surgery with no complaints. She is on magnesium sulfate for seizure prophylaxis. Objective - Vital Signs Latest vital signs: Vital Signs Temp Pulse Resp BP Pulse Ox 02/21/19 16:18 92 H 122/63 02/21/19 15:59 94 H 122/69 02/21/19 15:18 90 115/63 02/21/19 14:18 93 H 116/62 02/21/19 13:18 97 H 119/67 02/21/19 12:18 93 H 119/64 02/21/19 11:18 97 H 127/68 02/21/19 10:18 96 H 128/90 02/21/19 10:17 96 H 134/81 02/21/19 09:18 96 H 134/81 02/21/19 08:18 90 133/81 02/21/19 07:18 93 H 118/70 02/21/19 06:34 18 02/21/19 06:32 93 H 96 02/21/19 06:18 90 118/66 02/21/19 05:48 98 H 94 02/21/19 05:41 99 H 20 75 L 02/21/19 05:40 20 02/21/19 05:39 95 H 100 02/21/19 05:37 93 H 120/73 02/21/19 04:35 97.4 F L 18 02/21/19 04:18 86 111/66 02/21/19 03:18 85 120/59 02/21/19 03:17 87 91 02/21/19 03:12 95 H 95 02/21/19 02:53 84 95 02/21/19 02:47 86 94 02/21/19 02:45 87 85 02/21/19 02:43 96.6 F L 16 02/21/19 02:42 85 89 02/21/19 02:40 85 91 02/21/19 02:38 83 127/63 02/21/19 02:37 87 91 02/21/19 02:34 80 151/66 02/21/19 02:19 88 97 02/21/19 02:14 91 H 99/64 100 02/21/19 02:10 93 H 88 02/21/19 02:09 87 96 02/21/19 02:05 92 H 84 02/21/19 02:04 88 95 02/21/19 01:59 89 96 02/21/19 01:55 90 122/68 02/21/19 01:54 88 96 02/21/19 01:23 97.9 F 97 H 15 110/59 96 02/21/19 01:19 15 02/21/19 01:15 99 H 15 100/61 95 02/21/19 01:08 14 02/21/19 01:00 101 H 13 113/82 95 02/21/19 00:50 16 02/21/19 00:45 108 H 16 134/75 96 02/21/19 00:40 105 H 15 128/91 02/21/19 00:30 107 H 20 137/82 95 02/21/19 00:25 107 H 25 H 129/85 98 02/21/19 00:20 109 H 18 135/82 98 02/21/19 00:15 98.1 F 110 H 21 137/89 97 02/20/19 21:02 106 H 161/99 02/20/19 21:00 107 H 97 02/20/19 20:55 101 H 164/97 98 02/20/19 20:46 96 H 167/98 02/20/19 20:42 96 H 170/101 02/20/19 20:15 95 H 175/90 02/20/19 19:55 96 H 160/95 02/20/19 19:35 96 H 143/81 02/20/19 19:13 99 H 97 02/20/19 19:12 100 H 154/87 02/20/19 19:08 101 H 96 02/20/19 19:06 98.0 F 18 02/20/19 18:59 100 H 144/84 02/20/19 18:42 103 H 165/84 02/20/19 18:27 107 H 149/83 02/20/19 18:13 101 H 155/89 02/20/19 18:02 98.2 F 20 02/20/19 17:59 81 164/104 02/20/19 17:55 77 167/98 02/20/19 17:27 77 167/98 02/20/19 17:26 74 164/99 02/20/19 17:25 75 185/101 Intake and Output 02/21/19 02/21/19 02/21/19 07:59 15:59 23:59 Intake Total 1460 862.5 Output Total 525 500 550 Balance 935 -500 312.5 Intake: IV 1400 862.5 D5lr 1,000 ml @ 75 mls/hr 862.5 IV DIRECT [facility] Rx#: [id number] Oral 60 Output: Urine 525 500 550 Indwelling Catheter 375 500 550 Other: Total, Intake Amount 0 Total, Output Amount 100 500 550 Estimated Blood Loss 600 - Labs Labs: Abnormal lab results 02/20/19 02/21/19 02/21/19 Range/Units 22:55 03:20 05:51 POC ABG pH 7.229 L (7.35-7.45) POC ABG pCO2 59.9 H (35-45) POC Glucose 144 H (70-105) Magnesium 5.40 H (1.7-2.3) mg/dL 02/21/19 Range/Units 13:55 POC ABG pH (7.35-7.45) POC ABG pCO2 (35-45) POC Glucose (70-105) Magnesium 6.30 H (1.7-2.3) mg/dL
[2019-02-21] MEDS: PERCOCET 5/325 PO PRN (19:51)
[2019-02-21] MEDS ORDERED: FLONASE NS PRN (21:43)
[2019-02-22] MEDS: PERCOCET 5/325 PO PRN ×3 (04:14→15:16)
[2019-02-22] MEDS: D5LR 1,000 ML IV SCH ×2 (04:17→21:37)
[2019-02-22] MEDS: PRENATAL VITAMIN PO SCH ×2 (10:20→10:42)
[2019-02-22] MEDS: NORVASC PO SCH ×2 (10:20→10:43)
[2019-02-22] MEDS: NORMODYNE PO SCH ×2 (10:20→22:39)
--- NOTE | 2019-02-22 10:53 | Progress Note ---
Assessment and Plan A: /postop day 1 S/P repeat classical section. Anemia secondary to and blood loss. Chronic hypertension with superimposed preeclampsia (BPs controlled on Labetalol and Norvasc). Mild temperature elevation overnight; temperature now normal. P: CBC, urinalysis, urine culture. Iron supplementation. Encouraged ambulation. Advance diet when passing gas. Subjective - Subjective Date of service: 02/22/19 Principal diagnosis: /postop day 1 S/P repeat classical section Interval history: /postop day 1 S/P repeat classical section. Doing well. Ambulating without difficulty; voiding well. Has not passed gas yet. Tolerating a liquid diet without nausea or vomiting. Patient denies headache, visual disturbance, dizziness, cough, shortness of breath, chest pain, abdominal pain, leg pain, or heavy vaginal bleeding. Patient reports: appetite normal, voiding normally, pain well controlled, ambulating normally, no dizzy ambulation, no flatus, no nauseated : in NICU Objective - Vital Signs Latest vital signs: Vital Signs Temp Pulse Resp BP BP Pulse Ox 02/22/19 10:43 137/88 02/22/19 08:43 98.2 F 20 137/88 02/22/19 07:42 18 02/22/19 04:14 18 02/22/19 03:37 100.2 F H 98 H 18 131/86 93 02/22/19 02:18 91 H 115/60 02/22/19 01:18 88 114/62 02/22/19 00:18 87 109/59 02/21/19 23:18 85 101/58 02/21/19 22:18 93 H 124/58 02/21/19 21:41 93 H 135/77 02/21/19 21:18 93 H 135/77 02/21/19 20:51 18 02/21/19 20:18 94 H 127/69 02/21/19 19:51 18 02/21/19 19:29 95 H 95 02/21/19 19:24 98.0 F 96 H 18 120/66 96 02/21/19 19:18 96 H 120/66 02/21/19 18:51 97 H 130/74 02/21/19 18:50 98.2 F 97 H 16 130/75 02/21/19 18:18 93 H 122/73 02/21/19 17:18 93 H 130/75 02/21/19 16:18 92 H 122/63 02/21/19 15:59 94 H 122/69 02/21/19 15:18 90 115/63 02/21/19 14:18 93 H 116/62 02/21/19 13:18 97 H 119/67 02/21/19 12:18 93 H 119/64 02/21/19 11:18 97 H 127/68 Intake and Output 02/21/19 02/22/19 02/22/19 23:59 07:59 15:59 Intake Total 862.5 1216.25 Output Total 850 400 Balance 12.5 816.25 Intake: IV 862.5 916.25 D5lr 1,000 ml @ 75 mls/hr 862.5 916.25 IV DIRECT [facility] Rx#: [id number] Intake, Free Water 300 Output: Urine 850 400 Indwelling Catheter 850 Void 400 Other: Total, Output Amount 300 400 # Voids Void 1 - Exam Cardiovascular: Present: Regular rate, Normal S1, Normal S2, No murmurs Lungs: Present: Clear to auscultation Abdomen: Present: normal appearance, soft, normal bowel sounds. Absent: distention, tenderness, guarding, rigidity Uterus: Present: normal, firm, fundal height below umbilicus. Absent: bogginess, tenderness Extremities: Present: normal. Absent: tenderness Incision: Present: normal, dry, intact, dressed - Labs Labs: Abnormal lab results 02/21/19 02/21/19 Range/Units 13:55 18:12 Magnesium 6.30 H 6.70 H (1.7-2.3) mg/dL
[2019-02-22 13:05] LABS: Hematocrit 24.8 % (30.3-42.9); Hemoglobin 8.5 gm/dl (10.1-14.3); Mean Corpuscular HGB Conc 35 % (30-34); Mean Corpuscular Volume 100 fl (79-97); Platelet Count 186 K/mm3 (140-440); Red Blood Count 2.48 M/mm3 (3.65-5.03); Red Cell Distribution Width 14.5 % (13.2-15.2)
[2019-02-22 14:19] LABS: Basophils % (Manual) 0 % (0.0-1.8); Eosinophils % (Manual) 0 % (0.0-4.3); Total Cells Counted 100
[2019-02-22 14:20] LABS: Platelet Estimate Consistent w Auto; RBC Morphology Normal
--- NOTE | 2019-02-22 15:17 | Event Note ---
Date: 02/22/19 Patient had brief temp. elevation overnight of 100.2, down to 98.2 this AM. Patient denies cough, congestion, sore throat, ear pain or drainage, wheezing, chest pain or shortness of breath. Patient denies urinary frequency, dysuria, back pain, or flank pain. Patient denies chills or malaise. CBC done today: WBC 19.9. Only complaint patient has is that she has not passed gas yet. Still on a clear liquid diet. Consulted with Dr. Quan re: all of the above. Dr. Quan recommended starting patient on Clindamycin and Gentamicin and not advancing her diet until she passes gas. Also recommends to repeat the CBC tomorrow. Orders put in, RN notified, and all of this was also explained to the patient.
[2019-02-22] MEDS: CLEOCIN 900 MG/50 mL 900 MG/50 ML BAG IV SCH (17:05)
[2019-02-22 18:54] LABS: Bacteria,Urine 2+ /HPF (Negative); Bilirubin,Urine NEG (Negative); Blood,Urine LG (Negative); Color,Urine Amber (Yellow); Granular Casts,Urine 5 /LPF; Hyaline Casts,Urine 5 /LPF; Mucus,Urine 2+ /HPF; Urobilinogen,Urine < 2.0 mg/dL (<2.0)
[2019-02-22 18:57] LABS: Alanine Aminotransferase 17 units/L (7-56); Albumin 2.5 g/dL (3.9-5); BUN/Creatinine Ratio 12; Blood Urea Nitrogen 11 mg/dL (7-17); Calcium 7.8 mg/dL (8.4-10.2); Hemolysis Index 1
[2019-02-22] MEDS: GENTAMICIN/NS 100 MG/100 ML 100 MG/100 ML BAG IV SCH (20:48)
[2019-02-22] MEDS: MILK OF MAGNESIA PO PRN (21:01)
[2019-02-23] MEDS: PERCOCET 5/325 PO PRN ×3 (00:50→23:26)
[2019-02-23] MEDS: CLEOCIN 900 MG/50 mL 900 MG/50 ML BAG IV SCH ×3 (00:52→18:22)
[2019-02-23] MEDS: GENTAMICIN/NS 100 MG/100 ML 100 MG/100 ML BAG IV SCH ×3 (03:43→23:16)
[2019-02-23] MEDS: NORVASC PO SCH ×2 (10:00→10:22)
[2019-02-23] MEDS: PRENATAL VITAMIN PO SCH ×2 (10:22→13:53)
[2019-02-23] MEDS: NORMODYNE PO SCH ×2 (11:04→23:27)
[2019-02-23] MEDS: MILK OF MAGNESIA PO PRN (11:08)
[2019-02-23] MEDS: COLACE PO PRN (11:08)
--- NOTE | 2019-02-23 12:54 | Progress Note ---
Assessment and Plan A: /postop day 2 S/P repeat classical section. Chronic hypertension with superimposed preeclampsia; stable BPs. Anemia secondary to and blood loss. P: CBC to be repeated this afternoon. Continue iron supplementation. Encouraged ambulation. Subjective - Subjective Date of service: 02/23/19 Principal diagnosis: /postop day 2 S/P repeat classical section Interval history: /postop day 2 S/P repeat classical section. Doing well. Ambulating without difficulty; voiding well. Passing gas. Denies nausea or vomiting. Patient denies headache, visual disturbance, dizziness, cough, shortness of breath, chest pain, abdominal pain, leg pain, or heavy vaginal bleeding. Patient is receiving IV Clindamycin and Gentamicin due to temp. elevation yesterday and elevated WBC. Patient reports: appetite normal, voiding normally, pain well controlled, flatus, ambulating normally, no dizzy ambulation, no bowel movement, no nauseate d : in NICU Objective - Vital Signs Latest vital signs: Vital Signs Temp Pulse Resp BP BP Pulse Ox 02/23/19 10:22 86 125/77 02/23/19 05:45 98.3 F 86 20 125/77 94 02/23/19 00:50 18 02/23/19 00:44 98.7 F 92 H 18 127/87 96 02/22/19 22:39 87 133/85 02/22/19 20:20 98.3 F 87 18 118/73 96 02/22/19 17:02 98.4 F 95 H 20 120/73 92 Intake and Output 02/22/19 02/23/19 02/23/19 23:59 07:59 15:59 Intake Total 1390 230 720 Balance 1390 230 720 Intake: IV 1150 50 CLEOCIN 900 MG/50 mL 900 50 50 mg In 50 ml @ 100 mls/hr IV Q8H [facility] Rx#:[id number] D5lr 1,000 ml @ 75 mls/hr 1000 IV DIRECT [facility] Rx#: [id number] GENTAMICIN/NS 100 MG/100 100 ML 100 mg In 100 ml @ 200 mls/hr IV Q8H [facility] Rx#: [id number] Oral 240 Intake, Free Water 240 180 480 Other: Total, Intake Amount 240 # Voids Void 1 1 1 - Exam Cardiovascular: Present: Regular rate, Normal S1, Normal S2, No murmurs Lungs: Present: Clear to auscultation Abdomen: Present: normal appearance, soft, normal bowel sounds. Absent: distention, tenderness, guarding, rigidity Uterus: Present: normal, firm, fundal height below umbilicus. Absent: bogginess, tenderness Extremities: Present: normal. Absent: tenderness Incision: Present: normal, dry, intact - Labs Labs: Abnormal lab results 02/22/19 02/22/19 02/22/19 Range/Units 12:19 17:31 18:30 WBC 19.9 H (4.5-11.0) K/mm3 RBC 2.48 L (3.65-5.03) M/mm3 Hgb 8.5 L (10.1-14.3) gm/dl Hct 24.8 L D (30.3-42.9) % MCV 100 H (79-97) fl MCH 34 H (28-32) pg MCHC 35 H (30-34) % Seg Neuts % (Manual) 87.0 H (40.0-70.0) % Lymphocytes % (Manual) 10.0 L (13.4-35.0) % Seg Neutrophils # Man 17.3 H (1.8-7.7) K/mm3 Sodium 134 L (137-145) mmol/L Glucose 115 H (65-100) mg/dL Calcium 7.8 L (8.4-10.2) mg/dL Total Protein 5.8 L (6.3-8.2) g/dL Albumin 2.5 L (3.9-5) g/dL Urine WBC (Auto) 43.0 H (0.0-6.0) /HPF U Epithel Cells (Auto) 40.0 H (0-13.0) /HPF
[2019-02-23 13:25] LABS: Basophils % (Auto) 0.1 % (0.0-1.8); Eosinophils # (Auto) 0.5 K/mm3 (0.0-0.4); Hematocrit 24.7 % (30.3-42.9); Hemoglobin 8.6 gm/dl (10.1-14.3); Lymphocytes # (Auto) 1.7 K/mm3 (1.2-5.4); Lymphocytes % (Auto) 10.4 % (13.4-35.0); Mean Corpuscular HGB Conc 35 % (30-34); Mean Corpuscular Volume 100 fl (79-97); Monocytes # (Auto) 1.3 K/mm3 (0.0-0.8); Platelet Count 214 K/mm3 (140-440); Red Blood Count 2.48 M/mm3 (3.65-5.03); Red Cell Distribution Width 14.3 % (13.2-15.2)
[2019-02-24] MEDS ORDERED: NARCAN 2 MG/2 ML IV PRN (05:17)
--- NOTE | 2019-02-24 05:18 | Anesthesia Consultation ---
Anesthesia Consult and Med Hx Date of service: 02/24/19 - Airway Anesthetic Teeth Evaluation: Good ROM Head & Neck: Adequate Mental/Hyoid Distance: Adequate Mallampati Class: Class II Intubation Access Assessment: Good - Pulmonary Exam CTA: Yes - Cardiac Exam Cardiac Exam: RRR - Pre-Operative Health Status ASA Pre-Surgery Classification: ASA2 Proposed Anesthetic Plan: Epidural - Pulmonary Hx Smoking: No Hx Asthma: No Hx Respiratory Symptoms: No SOB: No COPD: No Home Oxygen Therapy: No Hx Pneumonia: No Hx Sleep Apnea: No (snores) - Cardiovascular System Hx Hypertension: Yes Hx Coronary Artery Disease: No Hx Heart Attack/AMI: No Hx Angina: No Hx Percutaneous Transluminal Coronary Angioplasty (PTCA): No Hx Cardia Arrhythmia: No Hx Pacemaker: No Hx Internal Defibrillator: No Hx Valvular Heart Disease: No Hx Heart Murmur: No Hx Peripheral Vascular Disease: No - Central Nervous System Hx Neuromuscular Disorder: No Hx Seizures: No CVA: No Hx Back Pain: Yes Hx Psychiatric Problems: No - Gastrointestinal Hx Gastroesophageal Reflux Disease: Yes - Endocrine Hx Renal Disease: No Hx End Stage Renal Disease: No Hx Cirrhosis: No Hx Liver Disease: No Hx Insulin Dependent Diabetes: No Hx Non-Insulin Dependent Diabetes: Yes (gestational DM) Hx Thyroid Disease: No Hx Hypothyroidism: No Hx Hyperthyroidism: No - Hematic Hx Anemia: No Hx Sickle Cell Disease: No - Other Systems Hx Alcohol Use: No Hx Substance Use: No Hx Cancer: No Hx Obesity: Yes
[2019-02-24] MEDS ORDERED: fentaNYL-BUPIV 2 MCG/ML-0.125% 200 MCG/100 ML BAG EPIDURAL SCH (06:00)
[2019-02-24] MEDS: CLEOCIN 900 MG/50 mL 900 MG/50 ML BAG IV SCH (06:15)
[2019-02-24] MEDS: GENTAMICIN/NS 100 MG/100 ML 100 MG/100 ML BAG IV SCH (06:52)
[2019-02-24 08:00] VITALS: BP 133/88
[2019-02-24] MEDS: PERCOCET 5/325 PO PRN (08:54)
[2019-02-24] MEDS: NORVASC PO SCH (09:46)
[2019-02-24] MEDS: COLACE PO PRN (09:46)
[2019-02-24] MEDS: PRENATAL VITAMIN PO SCH (09:56)
[2019-02-24] MEDS: NORMODYNE PO SCH (09:56)
--- NOTE | 2019-02-24 10:49 | Progress Note ---
Assessment and Plan - Patient Problems (1) History of section, classical Current Visit: Yes Status: Acute Plan to address problem: s/p Repeat Classical C/S POD 3 - stable Discharge to home today Follow up at [facility] as needed or in 1 week for BP and incision check (2) Chronic hypertension with superimposed preeclampsia Current Visit: Yes Status: Acute Plan to address problem: Asymptomatic BPs 130/88, 133/88 Completed magnesium sulfate therapy Continue antihypertensive therapy: Norvasc 5mg PO qd, Labetalol 300mg PO BID (3) Anemia due to blood loss, acute Current Visit: Yes Status: Acute Plan to address problem: Asymptomatic Continue iron therapy (4) Leukocytosis Current Visit: Yes Status: Acute Plan to address problem: Afebrile WBC count decreasing Blood culture - no growth after 24 hours Urine culture: mixed ismael Clindamycin and Gentamycin IV given Repeat CBC due later today (5) Gestational diabetes Current Visit: Yes Status: Acute Qualifiers: Trimester: second trimester Plan to address problem: Blood glucose stable Continue ADA diet Subjective - Subjective Date of service: 02/24/19 Principal diagnosis: POD #3; s/p Repeat Classical C/S Interval history: see H&P, Event Notes, [facility] [employer] Consult Notes, OB Progress Notes, Operative Report and PP/SENIOR APPLICATIONS ENGINEER Progress Notes Patient reports: appetite normal, voiding normally, pain well controlled, flatus, bowel movement, ambulating normally, other (denies fever, chills, headache, visual disturbances or RUQ pain), no dizzy ambulation [place]: in NICU Objective - Vital Signs Latest vital signs: Vital Signs Temp Pulse Resp BP BP Pulse Ox 02/24/19 08:54 18 02/24/19 07:56 99.1 F 85 18 133/88 96 02/24/19 05:15 97.5 F L 90 20 130/88 02/24/19 05:14 97.5 F L 87 18 146/96 94 02/23/19 23:33 98.7 F 92 H 18 136/88 100 02/23/19 23:27 92 H 136/88 02/23/19 16:05 98.1 F 88 18 120/78 96 Intake and Output 02/23/19 02/24/19 02/24/19 23:59 07:59 15:59 Intake Total 1710 530 Balance 1710 530 Intake: IV 150 50 CLEOCIN 900 MG/50 mL 900 50 50 mg In 50 ml @ 100 mls/hr IV Q8H [facility] Rx#:[id number] GENTAMICIN/NS 100 MG/100 100 ML 100 mg In 100 ml @ 200 mls/hr IV Q8H [facility] Rx#: [id number] Oral 480 120 Intake, Free Water 1080 360 Other: Total, Intake Amount 240 120 # Voids Void 1 1 - Exam Cardiovascular: Present: Regular rate Lungs: Present: Clear to auscultation Abdomen: Present: normal appearance, soft Vulva: both: normal Uterus: Present: normal, firm, fundal height below umbilicus Extremities: Present: normal Deep Tendon Reflex Grade: Normal +2 Incision: Present: normal, dry, intact, other (steri strips in place) Comments: scant lochia - Labs Labs: Abnormal lab results 02/23/19 Range/Units 12:34 WBC 16.1 H (4.5-11.0) K/mm3 RBC 2.48 L (3.65-5.03) M/mm3 Hgb 8.6 L (10.1-14.3) gm/dl Hct 24.7 L (30.3-42.9) % MCV 100 H (79-97) fl MCH 35 H (28-32) pg MCHC 35 H (30-34) % Lymph % (Auto) 10.4 L (13.4-35.0) % [place] % (Auto) 8.0 H (0.0-7.3) % [place] # 1.3 H (0.0-0.8) K/mm3 Eos # 0.5 H (0.0-0.4) K/mm3 Seg Neutrophils % 78.5 H (40.0-70.0) % Seg Neutrophils # 12.7 H (1.8-7.7) K/mm3
[2019-02-24] MEDS ORDERED: FEOSOL PO SCH (11:00)
--- NOTE | 2019-02-24 11:02 | Discharge Summary ---
Providers - Providers Date of Admission: 02/10/19 11:09 Date of discharge: 02/24/19 Attending physician: CHRISTIN ACOSTA MD 02/14/19 09:56 Consult to Physician [CONS] Urgent Comment: Consulting Provider: DIANA CANALES Physician Instructions: IUGR, anticpate delivery Reason For Exam: Preeclampsia - 2nd trimester Primary care physician: CHRISTIN ACOSTA MD Hospitalization Reason for admission: IUP - , other (chronic hypertension with superimposed pre-eclampsia) Delivery: Procedure: section, vertical Episiotomy: none Laceration: none Incision: normal, dry, intact, other (steri strips in place) Other procedures: none complications: none Discharge diagnosis: delivery [employer] baby: female Hospital course: Complicated by severe pre-eclampsia Condition at discharge: Stable Disposition: - TO HOME OR SELFCARE - Discharge Diagnoses (1) History of section, classical Status: Acute Comment: s/p Repeat Classical C/S (2) Chronic hypertension with superimposed preeclampsia Status: Acute Comment: Asymptomatic Continue Norvasc 5mg PO daily and Labetalol 300mg PO BID (3) Anemia due to blood loss, acute Status: Acute Comment: Asymptomatic Continue iron therapy (4) Leukocytosis Status: Acute Comment: Afebrile Completed antibiotics therapy (5) Gestational diabetes Status: Acute Qualifiers: Gestational diabetes mellitus control: diet-controlled Trimester: second trimester Qualified Code(s): O24.410 - Gestational diabetes mellitus in , diet controlled Plan - Discharge Medications Prescriptions: Labetalol [Labetalol 200mg TAB] 300 mg PO BID #60 tablet Ibuprofen [Motrin 800 MG tab] 800 mg PO Q8HR PRN 30 Days #30 tablet PRN Reason: Pain, Moderate (4-6) amLODIPine [Norvasc] 5 mg PO QDAY #30 tablet oxyCODONE /ACETAMINOPHEN [Percocet 5/325] 1 tab PO Q4HR PRN 14 Days #30 tab PRN Reason: Pain , Severe (7-10) - Provider Discharge Summary Activity: routine, no sex for 6 weeks, no heavy lifting 4 weeks, no strenuous exercise Diet: routine Instructions: routine Additional instructions: [] Smoking cessation referral if applicable(refer to patient education folder for contact #) [] Refer to [facility]'s [facility] Booklet Call your doctor immediately for: * Fever > 100.5 * Heavy vaginal bleeding ( >1 pad per hour) * Severe persistent headache * Shortness of breath * Reddened, hot, painful area to leg or breast * Drainage or odor from incision. * Keep incision clean and dry at all times and follow doctor's instructions regarding bathing/showering - Follow up plan Follow up: CHRISTIN ACOSTA MD [Primary Care Provider] - 7 Days (Follow up at [facility] as needed or in 1 week for BP and incision check) Forms: [facility] Discharge Summary, Discharge Signature Page
[2019-02-24 13:22] LABS: Basophils % (Auto) 0.4 % (0.0-1.8); Eosinophils # (Auto) 0.6 K/mm3 (0.0-0.4); Eosinophils % (Auto) 5.4 % (0.0-4.3); Hemoglobin 8.9 gm/dl (10.1-14.3); Lymphocytes # (Auto) 1.6 K/mm3 (1.2-5.4); Lymphocytes % (Auto) 13.7 % (13.4-35.0); Mean Corpuscular HGB Conc 34 % (30-34); Mean Corpuscular Volume 101 fl (79-97); Monocytes % (Auto) 8.1 % (0.0-7.3); Platelet Count 280 K/mm3 (140-440); Red Blood Count 2.57 M/mm3 (3.65-5.03); Red Cell Distribution Width 14.4 % (13.2-15.2)
== END 2019-02-24 15:00 | disposition home or self-care (01) | DRG 765 ==
LOC: TRG 13:42 → LD 16:13 → OBSVTOIN 02-10 11:09 → LD 02-15 11:44 → APU 02-20 23:00 → LD 02-21 01:57 → OB 02-22 03:34
PROVIDERS: ADMIT Obstetrics & Gynecology; ATTEND Obstetrics & Gynecology
PROC: 10D00Z0 Extraction of Products of Conception, High, Open Approach (ICD-10-PCS; principal; 2019-02-21)
DX: O34.212 Maternal care for vertical scar from previous cesarean delivery (principal); O60.12X0 Preterm labor second trimester with preterm delivery second trimester, not applicable or unspecified; O99.12 Other diseases of the blood and blood-forming organs and certain disorders involving the immune mechanism complicating childbirth; O11.4 Pre-existing hypertension with pre-eclampsia, complicating childbirth; D62 Acute posthemorrhagic anemia; O36.5920 Maternal care for other known or suspected poor fetal growth, second trimester, not applicable or unspecified; O99.214 Obesity complicating childbirth; O24.420 Gestational diabetes mellitus in childbirth, diet controlled; O99.62 Diseases of the digestive system complicating childbirth; O32.1XX0 Maternal care for breech presentation, not applicable or unspecified; K21.9 Gastro-esophageal reflux disease without esophagitis; K66.0 Peritoneal adhesions (postprocedural) (postinfection); E66.01 Morbid (severe) obesity due to excess calories; O90.81 Anemia of the puerperium; Z3A.25 25 weeks gestation of pregnancy; D69.6 Thrombocytopenia, unspecified; Z37.0 Single live birth
CPT/HCPCS: 36415; 59025; 76815; 76816; 76819; 76820; 80053; 81001; 82232; 82565; 82803; 82947; 82962; 83036; 83615; 83735; 84156; 84443; 84450; 84460; 84550; 85007; 85014; 85018; 85025; 85027; 86147; 86592; 86777; 86778; 86850; 86900; 86901; 87040; 87086; 87497; 88305; G0378; C1765; C9250; J0360; J0702; J1170; J1580; J2250; J2270; J2590; J2765; J3010; J3475; J7120; J7121